=== PATIENT | female | born 1950 | race African-American/Black ===

== ENCOUNTER 2018-01-26 09:05 | Emergency (ER) | payer MEDICARE, BC, OTHER ==
--- NOTE | 2018-01-26 09:43 | ER Document Report ---
ED Medical Screen (RME) - General Chief Complaint: Shoulder Pain Stated Complaint: SHOULDER PAIN Time Seen by Provider: 01/26/18 09:34 Mode of Arrival: Ambulatory Information source: Patient TRAVEL OUTSIDE OF THE [place] IN LAST 30 DAYS: No - HPI Onset: Other - 2 DAYS Onset/Duration: Gradual Context: NO KNOWN INJURY Quality of pain: Achy, Dull Severity: Moderate Associated Symptoms: None Exacerbated by: Movement, Walking Relieved by: Denies Similar symptoms previously: No Recently seen / treated by doctor: No - Related Data Allergies/Adverse Reactions: shellfish derived Allergy (Verified 01/26/18 09:11) Home Medications: entresto, coreg, amiodorone, spirolactone, synthroid, baby aspirin Past Medical History - General Information source: Patient - Social History Chew tobacco use (# tins/day): No Frequency of alcohol use: Rare Drug Abuse: None - Past Medical History Cardiac Medical History: Reports: Hx Congestive Heart Failure Renal/ Medical History: Denies: Hx Peritoneal Dialysis Past Surgical History: Reports: Hx Pacemaker - Immunizations Hx Diphtheria, Pertussis, Tetanus Vaccination: Yes Review of Systems - Review of Systems Constitutional: No symptoms reported EENT: No symptoms reported Cardiovascular: No symptoms reported Respiratory: No symptoms reported Gastrointestinal: No symptoms reported Skin: Other - ABSCESS IN THIGH, DRAINING Physical Exam - Vital signs Vitals: Temp Pulse Resp BP Pulse Ox 98.1 F 64 20 117/82 98 01/26/18 09:24 01/26/18 09:24 01/26/18 09:24 01/26/18 09:24 01/26/18 09:24 Interpretation: Normal. No: Tachycardic, Tachypneic, Febrile - General General appearance: Appears well, Alert In distress: None - HEENT Head: Normocephalic Eyes: Normal Conjunctiva: Normal - Respiratory Respiratory status: No respiratory distress - Cardiovascular Rhythm: Regular - Extremities General upper extremity: Normal inspection, Tender - R. SHOULDER JOINT CAPSULE General lower extremity: Normal inspection - Psychological Associated symptoms: Normal affect, Normal mood Course - Vital Signs Vital signs: Temp Pulse Resp BP Pulse Ox 98.1 F 64 20 117/82 98 01/26/18 09:24 01/26/18 09:24 01/26/18 09:24 01/26/18 09:24 01/26/18 09:24
[2018-01-26 11:14] LABS: ABSOLUTE BASOPHILS # (AUTO) 0.1 10^3/uL (0.0-0.2); ABSOLUTE EOSINOPHILS # (AUTO) 0.2 10^3/uL (0.0-0.6); ABSOLUTE LYMPHOCYTES (AUTO) 1.3 10^3/uL (0.5-4.7); ABSOLUTE MONOCYTES (AUTO) 0.9 10^3/uL (0.1-1.4); ABSOLUTE NEUT (AUTO) 9.7 10^3/uL (1.7-8.2); BASOPHILS % (AUTO) 0.9 % (0-2); EOSINOPHILS % (AUTO) 1.3 % (0-6); HEMATOCRIT 45.3 % (36.0-47.0); HEMOGLOBIN 15.1 g/dL (12.0-15.5); LYMPHOCYTES % (AUTO) 10.7 % (13-45); MEAN CORPUSCULAR HEMOGLOBIN 29.7 pg (27.0-33.4); MEAN CORPUSCULAR HGB CONC 33.3 g/dL (32.0-36.0); MEAN CORPUSCULAR VOLUME 89 fl (80-97); MONOCYTES % (AUTO) 7.5 % (3-13); PLATELET COUNT 181 10^3/uL (150-450); RED BLOOD COUNT 5.09 10^6/uL (3.72-5.28); SEGMENTED NEUTROPHILS % (AUTO) 79.6 % (42-78); TOTAL CELLS COUNTED % (AUTO) 100 %; WHITE BLOOD COUNT 12.2 10^3/uL (4.0-10.5)
--- NOTE | 2018-01-26 11:27 | RADIOLOGY REPORT (SQ) ---
EXAM DESCRIPTION: SHOULDER RIGHT 2 OR MORE VIEWS COMPLETED DATE/TIME: 01/26/2018 10:51 am REASON FOR STUDY: PAIN, NO KNOWN INJURY COMPARISON: None. NUMBER OF VIEWS: Three views. TECHNIQUE: Internal rotation, external rotation, and Y view images acquired of the right shoulder. LIMITATIONS: None. FINDINGS: MINERALIZATION: Osteopenic BONES: No acute fracture or dislocation. No worrisome bone lesions. JOINTS: No glenohumeral joint dislocation. Mild bony spurring along the periphery of the bony glenoi d. Acromioclavicular joint bony spurring. Mild narrowing of the subacromial space. VISUALIZED LUNGS AND RIBS: No pneumothorax. No rib fracture. SOFT TISSUES: No radiopaque foreign body. OTHER: No other significant finding. IMPRESSION: Degenerative changes right shoulder. No acute fracture TECHNICAL DOCUMENTATION: JOB ID: [id number] [employer]- All Rights Reserved Reading location - IP/workstation name: [email or web address]
--- NOTE | 2018-01-26 11:51 | RADIOLOGY REPORT (SQ) ---
EXAM DESCRIPTION: ANKLE RIGHT COMPLETE COMPLETED DATE/TIME: 01/26/2018 10:51 am REASON FOR STUDY: PAIN, NO KNOWN INJURY COMPARISON: None. NUMBER OF VIEWS: Three views. TECHNIQUE: AP, lateral, and oblique radiographic images acquired of the right ankle. LIMITATIONS: None. FINDINGS: MINERALIZATION: Normal. BONES: Tiny avulsion fragments are present off the mid tip of the medial malleolus marked with an arr ow JOINTS: There is a tibiotalar joint effusion. No malalignment at the ankle mortise SOFT TISSUES: Medial soft tissue swelling without radiopaque foreign body. Arterial vascular calcifi cations. OTHER: Small plantar calcaneal spur IMPRESSION: Tiny acute avulsion fragments are present off the distal tip medial malleolus. Overlyin g soft tissue swelling with ankle joint effusion TECHNICAL DOCUMENTATION: JOB ID: [id number] [employer]- All Rights Reserved Reading location - IP/workstation name: [email or web address] [email or web address]
[2018-01-26] MEDS ORDERED: LIDOCAINE 4%/TETRACAINE 0.5%/EPI 0.18% 5 ML TOPICAL SOLN TOP ONE (12:02)
[2018-01-26] MEDS ORDERED: CEPHALEXIN 500 MG CAPSULE PO ONE (12:02)
[2018-01-26] MEDS ORDERED: TRAMADOL HCL 50 MG TABLET PO ONE (12:02)
[2018-01-26 12:43] LABS: ALANINE AMINOTRANSFERASE 61 U/L (9-52); ALBUMIN 4.2 g/dL (3.5-5.0); ALKALINE PHOSPHATASE 293 U/L (38-126); ANION GAP 17 (5-19); ASPARTATE AMINO TRANSFERASE 46 U/L (14-36); BILIRUBIN,DIRECT 0.5 mg/dL (0.0-0.4); BILIRUBIN,TOTAL 0.5 mg/dL (0.2-1.3); BLOOD UREA NITROGEN 34 mg/dL (7-20); CALCIUM 10.5 mg/dL (8.4-10.2); CARBON DIOXIDE 18 mmol/L (22-30); CHLORIDE 107 mmol/L (98-107); GLUCOSE 175 mg/dL (75-110); POTASSIUM 4.4 mmol/L (3.6-5.0); TOTAL PROTEIN 7.5 g/dL (6.3-8.2)
--- NOTE | 2018-01-26 13:02 | ER Document Report ---
ED General - General Chief Complaint: Shoulder Pain Stated Complaint: SHOULDER PAIN Time Seen by Provider: 01/26/18 09:34 Mode of Arrival: Ambulatory TRAVEL OUTSIDE OF THE [place] IN LAST 30 DAYS: No - HPI Patient complains to provider of: Right shoulder pain right ankle pain abscess Notes: Patient coming in for right shoulder pain right ankle pain ongoing for the last 2 days also coming in for concern of masses in the left leg. Patient states draining of the abscess to yellow drainage. Denies any fevers chills nausea vomiting diarrhea. Patient denies any trauma. Patient states pain in the shoulder and ankle been ongoing for 2 days. Denies any excessive physical activity patient otherwise resting comfortably upon my evaluation. - Related Data Allergies/Adverse Reactions: shellfish derived Allergy (Verified 01/26/18 09:11) Home Medications: entresto, coreg, amiodorone, spirolactone, synthroid, baby aspirin Past Medical History - General Information source: Patient - Social History Smoking Status: Never Smoker Chew tobacco use (# tins/day): No Frequency of alcohol use: Rare Drug Abuse: None Family History: Reviewed & Not Pertinent Patient has suicidal ideation: No Patient has homicidal ideation: No - Past Medical History Cardiac Medical History: Reports: Hx Congestive Heart Failure Endocrine Medical History: Reports: Hx Diabetes Mellitus Type 2 Renal/ Medical History: Denies: Hx Peritoneal Dialysis Past Surgical History: Reports: Hx Pacemaker - Immunizations Hx Diphtheria, Pertussis, Tetanus Vaccination: Yes Review of Systems - Review of Systems Constitutional: Other - Shoulder pain ankle pain abscess EENT: No symptoms reported Cardiovascular: No symptoms reported Respiratory: No symptoms reported Gastrointestinal: No symptoms reported Genitourinary: No symptoms reported Female Genitourinary: No symptoms reported Musculoskeletal: No symptoms reported Skin: No symptoms reported Hematologic/Lymphatic: No symptoms reported Neurological/Psychological: No symptoms reported -: Yes All other systems reviewed and negative Physical Exam - Vital signs Vitals: Temp Pulse Resp BP Pulse Ox 98.1 F 64 20 117/82 98 01/26/18 09:24 01/26/18 09:24 01/26/18 09:24 01/26/18 09:24 01/26/18 09:24 Interpretation: Normal - General General appearance: Appears well, Alert - HEENT Head: Normocephalic, Atraumatic Eyes: Normal Pupils: PERRL - Respiratory Respiratory status: No respiratory distress Chest status: Nontender Breath sounds: Normal Chest palpation: Normal - Cardiovascular Rhythm: Regular Heart sounds: Normal auscultation Murmur: No - Abdominal Inspection: Normal Distension: No distension Bowel sounds: Normal Tenderness: Nontender Organomegaly: No organomegaly - Back Back: Normal, Nontender - Extremities General upper extremity: Normal inspection, Tender - Tenderness palpation of the supraspinatus infraspinatus muscles of the shoulder blade no tenderness with range of motion, Normal color, Normal ROM, Normal temperature General lower extremity: Nontender, Normal color, Normal ROM, Normal temperature. No: Normal inspection - Swelling to the medial malleolus.Patient with a abscess with drainage on the inner thigh on the left is approximately 4 cm x 4 cm with good induration and fluctuance., Kathleen's sign - Neurological Neuro grossly intact: Yes Cognition: Normal Orientation: AAOx4 Tomasz Coma Scale Eye Opening: Spontaneous [place] Coma Scale Verbal: Oriented [place] Coma Scale Motor: Obeys Commands Tomasz Coma Scale Total: 15 Speech: Normal Motor strength normal: LUE, RUE, LLE, RLE Sensory: Normal - Psychological Associated symptoms: Normal affect, Normal mood - Skin Skin Temperature: Warm Skin Moisture: Dry Skin Color: Normal Course - Re-evaluation Re-evalutation: 01/26/18 19:11 The x-ray of the right ankle shows a avulsion fracture more likely from a possible inversion injury on the ankle likely from a sprain. Patient was placed in a Caden wrap and also given an ankle stirrup. Patient shoulder does show a diffuse arthritic changes. Patient abscess was opened more with a 18- gauge needle. Patient was encouraged follow-up PCP patient will be discharged home. Patient was started on Keflex for abscess - Vital Signs Vital signs: Temp Pulse Resp BP Pulse Ox 98.3 F 65 18 122/62 97 01/26/18 13:37 01/26/18 13:37 01/26/18 13:37 01/26/18 13:37 01/26/18 13:37 - Laboratory Result Diagrams: 01/26/18 10:58 01/26/18 12:01 Laboratory results interpreted by me: 01/26/18 01/26/18 01/26/18 10:58 10:58 12:01 WBC 12.2 H Seg Neutrophils % 79.6 H Lymphocytes % 10.7 L Absolute Neutrophils 9.7 H ESR 95 H Carbon Dioxide BUN Creatinine Est GFR ( Amer) Est GFR (Non-Af Amer) Glucose Calcium Direct Bilirubin AST ALT Alkaline Phosphatase C-Reactive Protein 51.2 H 01/26/18 12:01 WBC Seg Neutrophils % Lymphocytes % Absolute Neutrophils ESR Carbon Dioxide 18 L BUN 34 H Creatinine 1.64 H Est GFR ( Amer) 38 L Est GFR (Non-Af Amer) 31 L Glucose 175 H Calcium 10.5 H Direct Bilirubin 0.5 H AST 46 H ALT 61 H Alkaline Phosphatase 293 H C-Reactive Protein Discharge - Discharge Clinical Impression: Abscess, Arthritis of right shoulder region Avulsion fracture of right ankle Qualifiers: Encounter type: initial encounter Fracture type: closed Qualified Code(s): S82.891A - Other fracture of right lower leg, initial encounter for closed fracture Condition: Good Disposition: HOME, SELF-CARE Instructions: Abscess ([facility]), Caden Wrap ([facility]), Arthralgia ([facility]), Avulsion Fracture of the Ankle ([facility]), Oral Narcotic Medication ([facility]) Additional Instructions: Your x-ray shows a small avulsion fracture of your right ankle. More likely this occurred with a twisting motion of her ankle. He can still take Tylenol and Motrin for pain control. Please take the Ultram for severe pain. Continue to wear the wrap for the ankle stirrup as needed for support use crutches as needed to as well. The abscess was opened more and will continue to drain. Please take antibiotics as prescribed return to ER symptoms worsen. Prescriptions: Cephalexin Monohydrate [Keflex 500 mg Capsule] 500 mg PO Q6H 7 Days capsule Tramadol HCl [Ultram 50 mg Tablet] 50 mg PO ASDIR PRN #20 tablet PRN Reason: Walker [Ultra-Light Rollator] 1 each MC DAILY #1 each Forms: Return to Work
[2018-01-26 13:41] VITALS: BP 122/62
== END 2018-01-26 13:41 | disposition home or self-care (01) ==
LOC: ER 09:05
PROC: 0H9LXZZ Drainage of Left Lower Leg Skin, External Approach (ICD-10-PCS; principal; 2018-01-26)
DX: S82.891A Other fracture of right lower leg, initial encounter for closed fracture (principal); M19.011 Primary osteoarthritis, right shoulder; L02.416 Cutaneous abscess of left lower limb; M25.511 Pain in right shoulder; M25.571 Pain in right ankle and joints of right foot; X58.XXXA Exposure to other specified factors, initial encounter; E11.9 Type 2 diabetes mellitus without complications
CPT/HCPCS: 99284; 36415; 85025; 85652; 86140; 80053; 73610; 73030; 10060; L1902; A9270 ×2; J3490

== ENCOUNTER 2018-05-02 13:17 | Emergency (ER) | payer MEDICARE, BC, OTHER ==
--- NOTE | 2018-05-02 14:01 | ER Document Report ---
ED Medical Screen (RME) - General Stated Complaint: BREAST PAIN Time Seen by Provider: 05/02/18 13:45 Notes: This is a 67-year-old female patient had a nursing facility complaining of right breast pain. Patient states that she has been recently hospitalized for sepsis. Renal failure. Dialysis. Currently having severe pain and enlargement of the right breast. I have greeted and performed a rapid initial assessment of this patient. A comprehensive ED assessment and evaluation of the patient, analysis of test results and completion of the medical decision making process will be conducted by additional ED providers. TRAVEL OUTSIDE OF THE [place] IN LAST 30 DAYS: No - Related Data Allergies/Adverse Reactions: shellfish derived Allergy (Verified 01/26/18 09:11) Past Medical History - Past Medical History Cardiac Medical History: Reports: Hx Congestive Heart Failure, Hx Hypertension Endocrine Medical History: Reports: Hx Diabetes Mellitus Type 2 Renal/ Medical History: Denies: Hx Peritoneal Dialysis Malignancy Medical History: Reports: Hx Leukemia - 1983. Musculoskeltal Medical History: Reports Hx Arthritis Past Surgical History: Reports: Hx Cardiac Surgery - pacemaker, Hx Hysterectomy , Hx Pacemaker, Other - Vascular access for autologous transplant. Bone Marrow biopsy. - Immunizations Hx Diphtheria, Pertussis, Tetanus Vaccination: Yes History of Influenza Vaccine for 06/2017 - 11/2017 Season: Unknown Doctor's Discharge - Discharge Referrals: TESSA DONNELLY MD [Primary Care Provider] - Follow up as needed
--- NOTE | 2018-05-02 14:24 | ER Document Report ---
ED Breast Problem - General Mode of Arrival: Ambulatory Information source: Patient Notes: Patient is a 67 year old female that presents to the emergency department today with complaints of a right-sided lump in her breast and extensive swelling to the right breast. Patient complains of generalized pain to the right breast with no focal area of tenderness or drainage. Patient has right arm swelling and bilateral leg swelling which she states is chronic. TRAVEL OUTSIDE OF THE [place] IN LAST 30 DAYS: No <BURT KOLB - Last Filed: 05/02/18 16:08> <LEATHA MAYES - Last Filed: 05/02/18 18:46> - General Chief Complaint: Breast Lump Stated Complaint: BREAST PAIN Time Seen by Provider: 05/02/18 13:45 - Related Data Allergies/Adverse Reactions: shellfish derived Allergy (Verified 01/26/18 09:11) Past Medical History - General Information source: Patient - Social History Smoking Status: Never Smoker Cigarette use (# per day): No Frequency of alcohol use: None Drug Abuse: None Lives with: Intermediate Family History: DM, Reviewed & Not Pertinent, Other - Past Medical History Cardiac Medical History: Reports: Hx Congestive Heart Failure, Hx Hypertension Endocrine Medical History: Reports: Hx Diabetes Mellitus Type 2 Malignancy Medical History: Reports: Hx Leukemia - 1983. Musculoskeletal Medical History: Reports Hx Arthritis Past Surgical History: Reports: Hx Cardiac Surgery - pacemaker, Hx Hysterectomy , Hx Pacemaker, Other - Vascular access for autologous transplant. Bone Marrow biopsy. - Immunizations Hx Diphtheria, Pertussis, Tetanus Vaccination: Yes <BURT KOLB - Last Filed: 05/02/18 16:08> Renal/ Medical History: Reports: Other - Renal insufficiency <LEATHA MAYES - Last Filed: 05/02/18 18:46> Review of Systems - Review of Systems Constitutional: No symptoms reported EENT: No symptoms reported Cardiovascular: No symptoms reported Respiratory: No symptoms reported Gastrointestinal: No symptoms reported Genitourinary: No symptoms reported Female Genitourinary: No symptoms reported Musculoskeletal: See HPI, Leg swelling Skin: See HPI, Lumps - Right breast lump/swelling Hematologic/Lymphatic: No symptoms reported Neurological/Psychological: No symptoms reported -: Yes All other systems reviewed and negative <BURT KOLB - Last Filed: 05/02/18 16:08> Physical Exam - Notes Notes: Physical Exam: General: Alert. HEENT: Normocephalic. Atraumatic. PERRL. Extraocular movements intact. Oropharynx clear. Neck: Supple. Non-tender. Respiratory: No respiratory distress. Clear and equal breath sounds bilaterally. Cardiovascular: Regular rate and rhythm. Abdominal: Normal Inspection. Non-tender. No distension. Normal Bowel Sounds. Back: Non-tender. No deformity or step off. Extremities: Moves all four extremities. Upper extremities: Normal inspection. Normal ROM. Lower extremities: 2-3+ brawny pitting edema bilaterally Neurological: Normal cognition. AAOx4. Normal speech. Psychological: Normal affect. Normal Mood. Skin: Right breast is massively edematous. Left nipple is inverted while the right nipple is much larger and protruding. Right breast is tender diffusely, no focal area of exquisite tenderness or drainage. There are no distended veins in the right breast. No warmth or erythema. <BURT KOLB - Last Filed: 05/02/18 16:08> Course - Re-evaluation Re-evalutation: 05/02/18 18:39 Family member arrived and further history shows that the patient is always laying on her right side. The surgeon attempted to start a central line, but found there was clot in both IJ's, and probably right subclavian. There is a pacemaker on the left. There is severe intertrigo in the groin and underneath each breast. Discussion was had with the surgeon and family member. It appears that the breast edema is all dependent edema due to laying on her right side all the time. The right upper extremity edema is probably mostly due to dependent edema also. She does have significant dependent edema in the lower extremities. Risks and benefits of anticoagulation were discussed with the family member and the patient. At this point it appears the most prudent approach would be to have the assisted staff make her lay on her left side most of the time rather than allow her to lay on her right side. She did have a dialysis catheter by history, but it was never used and was removed before she was transferred to [place] in March of this year. In [place] she received fluids, diuretics, never had dialysis. 05/02/18 18:43 - Laboratory Result Diagrams: 05/02/18 16:30 05/02/18 16:30 <LEATHA MAYES - Last Filed: 05/02/18 18:46> Scribe Documentation - Scribe Written by Inoe:: Divya Godoy, 05/02/2018 1650 acting as scribe for :: Charlee <BURT KOLB - Last Filed: 05/02/18 16:08> Discharge <BURT KOLB - Last Filed: 05/02/18 16:08> - Discharge Scribe Attestation: 05/02/18 15:55 I personally performed the services described in the documentation, reviewed and edited the documentation which was dictated to the scribe in my presence, and it accurately records my words and actions. <LEATHA MAYES - Last Filed: 05/02/18 18:46> - Discharge Clinical Impression: Edema of breast, Arm edema, Renal insufficiency, Intertrigo Condition: Stable Disposition: HOME, SELF-CARE Additional Instructions: Your arm and breast edema appear to be related to laying on your right side most of the time. You will need to be turned onto your left side most of the time for the next several days to help decrease the swelling on the right side. Follow-up with Dr. Rico this week to discuss the possibility of additional diuretic use. RETURN TO THE EMERGENCY ROOM IF ANY NEW OR WORSENING SYMPTOMS. Referrals: TESSA DONNELLY MD [Primary Care Provider] - Follow up as needed
--- NOTE | 2018-05-02 16:11 | XCELERA REPORT ---
[address] [address] Upper Extremity Venous Evaluation Name: SIMEON ROSA Age: 67 yrs Gender: Female : 1950 Patient Status: Preadmit Patient Location: ER Study Date: 05/02/2018 03:01 PM Procedure: Unilateral duplex scan of the right upper extremity veins was performed, including responses to compression and other maneuvers. Reason For Study: RUE and breast edema Ordering Physician: LEATHA MAYES Performed By: Desmond Oakley Right Side Venous Evaluation Abnormal vessel filling, echogenic, localized, in the otherwise normal looking Internal Jugular vein. Otherwise veins look normal down to the forearm veins. 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 : LEATHA MAYES > Wander Rosa
[2018-05-02 17:18] LABS: ABSOLUTE BASOPHILS # (AUTO) 0.1 10^3/uL (0.0-0.2); ABSOLUTE EOSINOPHILS # (AUTO) 0.1 10^3/uL (0.0-0.6); ABSOLUTE LYMPHOCYTES (AUTO) 0.5 10^3/uL (0.5-4.7); ABSOLUTE MONOCYTES (AUTO) 0.5 10^3/uL (0.1-1.4); ABSOLUTE NEUT (AUTO) 6.6 10^3/uL (1.7-8.2); BASOPHILS % (AUTO) 0.8 % (0-2); EOSINOPHILS % (AUTO) 1.6 % (0-6); HEMATOCRIT 34.1 % (36.0-47.0); HEMOGLOBIN 10.9 g/dL (12.0-15.5); LYMPHOCYTES % (AUTO) 6.2 % (13-45); MEAN CORPUSCULAR HEMOGLOBIN 28.7 pg (27.0-33.4); MEAN CORPUSCULAR HGB CONC 32.1 g/dL (32.0-36.0); MEAN CORPUSCULAR VOLUME 89 fl (80-97); MONOCYTES % (AUTO) 6.7 % (3-13); PLATELET COUNT 154 10^3/uL (150-450); RED BLOOD COUNT 3.82 10^6/uL (3.72-5.28); RED CELL DISTRIBUTION WIDTH 22.2 % (11.5-14.0); SEGMENTED NEUTROPHILS % (AUTO) 84.7 % (42-78); TOTAL CELLS COUNTED % (AUTO) 100 %; WHITE BLOOD COUNT 7.8 10^3/uL (4.0-10.5)
[2018-05-02 17:31] LABS: INTERNATIONAL RATION (INR) 1.23; PARTIAL THROMBOPLASTIN TIME 27.1 SEC (23.5-35.8); PROTHROMBIN TIME 16.2 SEC (11.4-15.4)
[2018-05-02 17:34] LABS: D-DIMER 3.25 ug/mL (0.00-0.50)
[2018-05-02 17:37] LABS: ALANINE AMINOTRANSFERASE 25 U/L (9-52); ALBUMIN 2.6 g/dL (3.5-5.0); ALKALINE PHOSPHATASE 191 U/L (38-126); ANION GAP 13 (5-19); ASPARTATE AMINO TRANSFERASE 12 U/L (14-36); BILIRUBIN,DIRECT 0.5 mg/dL (0.0-0.4); BILIRUBIN,TOTAL 0.7 mg/dL (0.2-1.3); BLOOD UREA NITROGEN 49 mg/dL (7-20); CALCIUM 8.7 mg/dL (8.4-10.2); CARBON DIOXIDE 21 mmol/L (22-30); CHLORIDE 110 mmol/L (98-107); CREATINE KINASE 33 U/L (30-135); GLUCOSE 68 mg/dL (75-110); POTASSIUM 3.8 mmol/L (3.6-5.0); SODIUM 144.1 mmol/L (137-145); TOTAL PROTEIN 5.8 g/dL (6.3-8.2)
[2018-05-02 18:01] LABS: TROPONIN I 0.025 ng/mL
--- NOTE | 2018-05-02 18:31 | Progress Note ---
Provider Note Provider Note: Called to see patient for possible central line placement. 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 The right subclavian vein was unrecognizable on ultrasound. I suspect severe stenosis and/or thrombosis. The left subclavian vein has an indwelling pacemaker or AICD. Bilateral groins were inspected. There is severe candidiasis in this area. At this time the patient is not a candidate for central line placement. This is been discussed with the patient's and her family.
[2018-05-02 19:56] VITALS: BP 95/65
== END 2018-05-02 20:00 | disposition home or self-care (01) ==
LOC: ER 13:17
DX: N64.4 Mastodynia (principal); N28.9 Disorder of kidney and ureter, unspecified; L30.4 Erythema intertrigo; R60.9 Edema, unspecified; I50.9 Heart failure, unspecified; I11.0 Hypertensive heart disease with heart failure; E11.9 Type 2 diabetes mellitus without complications; Z91.013 Allergy to seafood; Z95.0 Presence of cardiac pacemaker; Z90.710 Acquired absence of both cervix and uterus
CPT/HCPCS: 36415; 80053; 82550; 83605; 83880; 84484; 85025; 85379; 85610; 85730; 87040; 93971; 99284

== ENCOUNTER 2018-05-16 11:53 | Inpatient (IN) | payer MEDICARE, BC, OTHER ==
--- NOTE | 2018-05-16 13:30 | ER Document Report ---
ED General - General Chief Complaint: Swelling of Lower Extremity Stated Complaint: TOE PAIN Time Seen by Provider: 05/16/18 13:05 TRAVEL OUTSIDE OF THE [place] IN LAST 30 DAYS: No - HPI Patient complains to provider of: shortness of breath Onset: Other - This 67-year-old female presented for evaluation of shortness of breath as well as worsening swelling in the lower extremities from her plant director's office. Dr. Rico her plant director referred her here as he has been attempting to diurese her aggressively to better manage her fluid status using metolazone as well as Lasix. She previously required temporary dialysis and incense him improved enough to come off of dialysis. She notes that she is having difficulty moving now is unable to get out of bed, as worsening shortness of breath and orthopnea. Denies any chest pain denies any abdominal pain constipation diarrhea she is incontinent of urine. She has been taking her medications as usual nothing seemed to make her symptoms any better, nothing seems to make it any worse. - Related Data Allergies/Adverse Reactions: shellfish derived Allergy (Verified 05/16/18 12:25) Past Medical History - General Information source: Patient, Relative - Social History Smoking Status: Unknown if Ever Smoked Family History: DM, Reviewed & Not Pertinent, Other Patient has suicidal ideation: No Patient has homicidal ideation: No - Past Medical History Cardiac Medical History: Reports: Hx Congestive Heart Failure, Hx Hypertension Endocrine Medical History: Reports: Hx Diabetes Mellitus Type 2 Renal/ Medical History: Denies: Hx Peritoneal Dialysis Malignancy Medical History: Reports: Hx Leukemia - 1983. Musculoskeletal Medical History: Reports Hx Arthritis Past Surgical History: Reports: Hx Cardiac Surgery - pacemaker, Hx Hysterectomy , Hx Pacemaker, Other - Vascular access for autologous transplant. Bone Marrow biopsy. - Immunizations Hx Diphtheria, Pertussis, Tetanus Vaccination: Yes Review of Systems - Review of Systems -: Yes All other systems reviewed and negative Physical Exam - Vital signs Vitals: Resp BP Pulse Ox 23 H 79/48 L 95 05/16/18 12:06 05/16/18 12:06 05/16/18 12:06 - General General appearance: Other - Chronically ill-appearing woman In distress: None - HEENT Head: Normocephalic Eyes: Normal Conjunctiva: Normal Cornea: Normal - Respiratory Respiratory status: No respiratory distress Chest status: Nontender Breath sounds: Other - crackles in the inferior bases Chest palpation: Normal - Cardiovascular Rhythm: Regular Heart sounds: S2 appreciated Murmur: No - Abdominal Inspection: Morbidly Obese Distension: Distended Tenderness: Nontender - Back Back: Normal - Extremities General upper extremity: Normal inspection General lower extremity: Normal inspection - Neurological Neuro grossly intact: Yes Cognition: Normal Orientation: AAOx4 - Psychological Associated symptoms: Normal affect Course - Re-evaluation Re-evalutation: 05/16/18 18:22 67 yo female presenting for worsening fluid status from her plant director office. He desires her to be diuresed aggressively, this patient has relatively low blood pressures on presentation in the 80 systolic range. Her fluid status is tenuous, she has a poor ejection fraction between 15 and 20% . We will plan for brief period of monitoring obtaining BNP troponin EKG as well as other markers electrolytes. We will plan for administration of a diuretic which may improve her blood pressure. Bedside ultrasound demonstrates intact ejection fraction of approximately 20%, there are B-lines appreciable in the chest. We will continue to monitor and emergency department reassess as necessary. Spoke to patient's plant director Dr. Rico on the phone, he believes that she would benefit from inpatient monitoring will follow her for a consult tomorrow and dialyze as necessary. Have spoken with the patient's sister at the bedside who is in agreement with current plan, Dr. Ladan Clark agrees to admission at this time with continued monitoring and evaluation. - Vital Signs Vital signs: Temp Pulse Resp BP Pulse Ox 98.5 F 26 H 101/70 100 05/16/18 17:36 05/16/18 17:31 05/16/18 17:31 05/16/18 17:31 - Laboratory Result Diagrams: 05/16/18 12:20 05/16/18 12:20 Laboratory results interpreted by me: 05/16/18 05/16/18 05/16/18 12:20 12:20 14:34 RDW 20.3 H Plt Count 145 L Seg Neuts % (Manual) 92 H Lymphocytes % (Manual) 5 L Monocytes % (Manual) 2 L Abs Neuts (Manual) 8.6 H BUN 46 H Creatinine 1.99 H Est GFR ( Amer) 30 L Est GFR (Non-Af Amer) 25 L Direct Bilirubin 0.9 H Alkaline Phosphatase 265 H NT-Pro-B Natriuret Pep Total Protein 6.1 L Albumin 2.3 L Urine Blood SMALL H 05/16/18 15:35 RDW Plt Count Seg Neuts % (Manual) Lymphocytes % (Manual) Monocytes % (Manual) Abs Neuts (Manual) BUN Creatinine Est GFR ( Amer) Est GFR (Non-Af Amer) Direct Bilirubin Alkaline Phosphatase NT-Pro-B Natriuret Pep 27879 H Total Protein Albumin Urine Blood Procedures - Ultrasound/Bedside Ultrasound/Bedside Ultrasound: Other - decreased EF ~20%, no obvious effusion or septal bowing Critical Care Note - Critical Care Note Total time excluding time spent on procedures (mins): 15 Discharge - Discharge Clinical Impression: Acute on chronic systolic (congestive) heart failure, Morbid obesity, CKD ( chronic kidney disease) stage 3, GFR 30-59 ml/min CAD (coronary artery disease) Qualifiers: Coronary Disease-Associated Artery/Lesion type: unspecified vessel or lesion type Associated angina: with unspecified angina Acute on chronic renal failure Qualifiers: Acute renal failure type: unspecified Chronic kidney disease stage: stage 3 ( moderate) Qualified Code(s): N17.9 - Acute kidney failure, unspecified Condition: Fair Disposition: ADMITTED INPATIENT Admitting Provider: Hospitalist Unit Admitted: Telemetry
[2018-05-16 14:09] LABS: ALANINE AMINOTRANSFERASE 26 U/L (9-52); ALBUMIN 2.3 g/dL (3.5-5.0); ALKALINE PHOSPHATASE 265 U/L (38-126); ANION GAP 8 (5-19); ASPARTATE AMINO TRANSFERASE 28 U/L (14-36); BILIRUBIN,DIRECT 0.9 mg/dL (0.0-0.4); BILIRUBIN,TOTAL 0.9 mg/dL (0.2-1.3); BLOOD UREA NITROGEN 46 mg/dL (7-20); CALCIUM 8.4 mg/dL (8.4-10.2); CARBON DIOXIDE 28 mmol/L (22-30); CHLORIDE 104 mmol/L (98-107); GLUCOSE 96 mg/dL (75-110); LIPASE 265.4 U/L (23-300); POTASSIUM 3.7 mmol/L (3.6-5.0); SODIUM 139.8 mmol/L (137-145); TOTAL PROTEIN 6.1 g/dL (6.3-8.2)
[2018-05-16 14:11] LABS: HEMATOCRIT 37.9 % (36.0-47.0); HEMOGLOBIN 12.2 g/dL (12.0-15.5); MEAN CORPUSCULAR HEMOGLOBIN 28.3 pg (27.0-33.4); MEAN CORPUSCULAR HGB CONC 32.2 g/dL (32.0-36.0); MEAN CORPUSCULAR VOLUME 88 fl (80-97); PLATELET COUNT 145 10^3/uL (150-450); RED BLOOD COUNT 4.31 10^6/uL (3.72-5.28); RED CELL DISTRIBUTION WIDTH 20.3 % (11.5-14.0); WHITE BLOOD COUNT 9.4 10^3/uL (4.0-10.5)
[2018-05-16 14:45] LABS: ABSOLUTE LYMPHOCYTES# (MANUAL) 0.5 10^3/uL (0.5-4.7); ABSOLUTE MONOCYTES # (MANUAL) 0.2 10^3/uL (0.1-1.4); ABSOLUTE NEUTROPHILS# (MANUAL) 8.6 10^3/uL (1.7-8.2); BASOPHILS % (MANUAL) 0 % (0-2); EOSINOPHILS % (MANUAL) 1 % (0-6); LYMPHOCYTES % (MANUAL) 5 % (13-45); MONOCYTES % (MANUAL) 2 % (3-13); SEGMENTED NEUTROPHILS % (MAN) 92 % (42-78); TOTAL CELLS COUNTED 100
[2018-05-16 14:46] LABS: ANISOCYTOSIS 2+; BURR CELLS 1+; OVALOCYTES 1+; PLATELET COMMENT DECREASED; POIKILOCYTOSIS 2+; SCHISTOCYTES 1+; TARGET CELLS 1+; TOXIC VACUOLATION PRESENT
--- NOTE | 2018-05-16 14:46 | RADIOLOGY REPORT (SQ) ---
EXAM DESCRIPTION: CHEST SINGLE VIEW COMPLETED DATE/TIME: 05/16/2018 2:27 pm REASON FOR STUDY: fatigue COMPARISON: 02/22/2016 EXAM PARAMETERS: NUMBER OF VIEWS: One view. TECHNIQUE: Single frontal radiographic view of the chest acquired. RADIATION DOSE: NA LIMITATIONS: None. FINDINGS: LUNGS AND PLEURA: Low lung volumes limits the examination. Elevation of the right hemidi aphragm, unchanged finding. Linear subsegmental atelectasis in the right mid lung. The cardiac pace maker device overlies the left lower lobe limiting detail. MEDIASTINUM AND HILAR STRUCTURES: No masses. Contour normal. HEART AND VASCULAR STRUCTURES: Heart normal in size. Normal vasculature. BONES: No acute findings. HARDWARE: Cardiac pacemaker/defibrillator. OTHER: No other significant finding. IMPRESSION: 1 Low lung volumes limits detailed. As can best be determined, no acute findings. TECHNICAL DOCUMENTATION: JOB ID: [id number] [employer]- All Rights Reserved Reading location - IP/workstation name: [email or web address]
[2018-05-16] MEDS ORDERED: FUROSEMIDE INJ/PF 40 MG/4 ML SDV IV ONE ×2 (16:02→17:00)
[2018-05-16 16:16] LABS: APPEARANCE,URINE CLEAR; BILIRUBIN,URINE NEGATIVE (NEGATIVE); COLOR,URINE YELLOW; GLUCOSE, URINE NEGATIVE (NEGATIVE); KETONES,URINE NEGATIVE (NEGATIVE); LEUKOCYTE ESTERASE,URINE NEGATIVE (NEGATIVE); NITRITE,URINE NEGATIVE (NEGATIVE); PROTEIN,URINE NEGATIVE (NEGATIVE); URINE SPECIFIC GRAVITY 1.011; UROBILINOGEN,URINE NEGATIVE mg/dL (<2.0)
[2018-05-16 16:24] LABS: TROPONIN I 0.018 ng/mL
[2018-05-16] MEDS ORDERED: IPRATROPIUM/ALBUTEROL 0.5-2.5 MG/3 ML AMPUL NEB PRN (16:40)
[2018-05-16] MEDS ORDERED: ONDANSETRON HCL INJ/PF 4 MG/2 ML SDV IV PRN (16:40)
--- NOTE | 2018-05-16 16:40 | PDOC H&P ---
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 Patient referred from her primary rap artist Dr. Rico's office for possible IV Lasix since she failed to respond to p.o. diuretics. Patient denies fever, chills, chest pain, palpitation or diaphoresis. She denied any nausea, vomiting abdominal pain or diarrhea. Her initial blood work shows GFR of 20, creatinine of 1.99 she also isolated elevation of alkaline phosphatase of 265. Chest x-ray reported normal but quality of the chest x-ray is poor. Past Medical History Cardiac Medical History: Reports: Congestive Heart Failure, Hypertension Endocrine Medical History: Reports: Diabetes Mellitus Type 2 Malignancy Medical History: Reports: Leukemia - 1983. Musculoskeltal Medical History: Reports: Arthritis Hematology: Reports: Anemia Past Surgical History Past Surgical History: Reports: Hysterectomy, Pacemaker, Other - Vascular access for autologous transplant. Bone Marrow biopsy. Social History Smoking Status: Never Smoker Frequency of Alcohol Use: None Hx Recreational Drug Use: No Drugs: Marijuana Hx Prescription Drug Abuse: No - Advance Directive Resuscitation Status: Full Code Family History Family History: Reviewed & Not Pertinent, DM, Other Parental Family History Reviewed: Yes Children Family History Reviewed: Yes Sibling(s) Family History Reviewed.: Yes Medication/Allergy Home Medications: Cephalexin Monohydrate [Keflex 500 mg Capsule] 500 mg PO Q6H 7 Days capsule 11/14 Tramadol HCl [Ultram 50 mg Tablet] 50 mg PO ASDIR PRN #20 tablet 01/26/18 Walker [Ultra-Light Rollator] 1 each MC DAILY #1 each 01/26/18 Amiodarone HCl [Cordarone 200 mg Tablet] 200 mg PO DAILY 04/06/18 Calcitriol [Rocaltrol 0.25 Mcg Capsule] 0.25 mcg PO DAILY 04/06/18 Carvedilol [Coreg 3.125 mg Tablet] 3.125 mg PO Q12 04/06/18 Docusate Sodium [Colace 100 mg Capsule] 100 mg PO BID 04/06/18 Febuxostat [Uloric 40 mg Tablet] 40 mg PO DAILY 04/06/18 Furosemide [Lasix 20 mg Tablet] 20 mg PO QAM 04/06/18 Levothyroxine Sodium [Synthroid 0.15 mg Tablet] 0.15 mg PO Q6AM 04/06/18 Prednisone [Deltasone 10 mg Tablet] 10 mg PO DAILY 04/06/18 Ranitidine HCl [Zantac 150 mg Tablet] 150 mg PO BID 04/06/18 Sennosides/Docusate Sodium [Senna-S Tablet] 2 each PO DAILY 04/06/18 Sevelamer HCl [Renagel] 1,600 mg PO MEALS 04/06/18 Tramadol HCl [Ultram 50 mg Tablet] 50 mg PO Q6 04/06/18 Allergies/Adverse Reactions: shellfish derived Allergy (Verified 05/16/18 12:25) Review of Systems Constitutional: PRESENT: as per HPI Nose, Mouth, and Throat: PRESENT: as per HPI Cardiovascular: PRESENT: as per HPI Gastrointestinal: PRESENT: as per HPI Neurological: PRESENT: as per HPI Physical Exam Vital Signs: Temp Pulse Resp BP Pulse Ox 97.8 F 26 H 99/72 L 98 05/16/18 12:23 05/16/18 16:06 05/16/18 16:06 05/16/18 16:06 Intake & Output 05/15/18 05/16/18 05/17/18 06:59 06:59 06:59 Weight 100.698 kg General appearance: PRESENT: mild distress Eye exam: PRESENT: conjunctiva pink Mouth exam: PRESENT: moist Neck exam: ABSENT: carotid bruit, JVD, lymphadenopathy, thyromegaly Cardiovascular exam: PRESENT: systolic murmur - Pansystolic grade 3/6 GI/Abdominal exam: PRESENT: other - Obese Extremities exam: PRESENT: +2 edema Neurological exam: PRESENT: alert, awake, oriented to time, oriented to situation Psychiatric exam: PRESENT: normal mood Results Laboratory Results: 05/16/18 12:20 05/16/18 12:20 05/16/18 05/16/18 05/16/18 12:20 12:20 12:20 WBC 9.4 RBC 4.31 Hgb 12.2 Hct 37.9 MCV 88 MCH 28.3 MCHC 32.2 RDW 20.3 H Plt Count 145 L Seg Neutrophils % Not Reportable Lymphocytes % Not Reportable Monocytes % Not Reportable Eosinophils % Not Reportable Basophils % Not Reportable Absolute Neutrophils Not Reportable Absolute Lymphocytes Not Reportable Absolute Monocytes Not Reportable Absolute Eosinophils Not Reportable Absolute Basophils Not Reportable Sodium 139.8 Potassium 3.7 Chloride 104 Carbon Dioxide 28 Anion Gap 8 BUN 46 H Creatinine 1.99 H Est GFR ( Amer) 30 L Est GFR (Non-Af Amer) 25 L Glucose 96 Lactic Acid 1.8 Calcium 8.4 Total Bilirubin 0.9 AST 28 ALT 26 Alkaline Phosphatase 265 H Total Protein 6.1 L Albumin 2.3 L Lipase 265.4 Urine Color Urine Appearance Urine pH Ur Specific [place] Urine Protein Urine Glucose (UA) Urine Ketones Urine Blood Urine Nitrite Ur Leukocyte Esterase Urine WBC (Auto) Urine RBC (Auto) 05/16/18 14:34 WBC RBC Hgb Hct MCV MCH MCHC RDW Plt Count Seg Neutrophils % Lymphocytes % Monocytes % Eosinophils % Basophils % Absolute Neutrophils Absolute Lymphocytes Absolute Monocytes Absolute Eosinophils Absolute Basophils Sodium Potassium Chloride Carbon Dioxide Anion Gap BUN Creatinine Est GFR ( Amer) Est GFR (Non-Af Amer) Glucose Lactic Acid Calcium Total Bilirubin AST ALT Alkaline Phosphatase Total Protein Albumin Lipase Urine Color YELLOW Urine Appearance CLEAR Urine pH 6.0 Ur Specific [place] 1.011 Urine Protein NEGATIVE Urine Glucose (UA) NEGATIVE Urine Ketones NEGATIVE Urine Blood SMALL H Urine Nitrite NEGATIVE Ur Leukocyte Esterase NEGATIVE Urine WBC (Auto) 1 Urine RBC (Auto) 0 05/16/18 12:20 Troponin I Cancelled NT-Pro-B Natriuret Pep Cancelled Impressions: Chest X-Ray 05/16/18 13:36 IMPRESSION: 1 Low lung volumes limits detailed. As can best be determined, no acute findings. Assessment & Plan - Diagnosis (1) Acute on chronic systolic (congestive) heart failure Is this a current diagnosis for this admission?: Yes Plan: We will start her on IV Lasix 40 mg IV every 12 hours (2) Type 2 diabetes mellitus Is this a current diagnosis for this admission?: Yes Plan: Sliding-scale, continue home medication (3) Chronic kidney disease, stage IV (severe) Is this a current diagnosis for this admission?: Yes Plan: Dr. Rico consulted (4) Hypertension Qualifiers: Hypertension type: essential hypertension Qualified Code(s): I10 - Essential (primary) hypertension Is this a current diagnosis for this admission?: Yes Plan: Now patient is hypotensive. Hold home antihypertensive agents. (5) Morbid obesity Is this a current diagnosis for this admission?: Yes Plan: Lifestyle modification advised.
[2018-05-16] MEDS ORDERED: INSULIN LISPRO 100 UNIT/ML 3 ML VIAL SUBCUT PRN (22:32)
[2018-05-16] MEDS ORDERED: DEXTROSE 40% GEL 15 GM TUBE PO PRN (22:32)
[2018-05-16] MEDS ORDERED: DEXTROSE 50%-WATER SYRINGE 25 GM/50 ML DOSE IV PRN (22:32)
[2018-05-16] MEDS ORDERED: GLUCAGON,HUMAN RECOMB 1 MG INJ IM PRN (22:32)
[2018-05-16] MEDS ORDERED: DEXTROSE 40% GEL 15 GM TUBE X 2 PO PRN (22:32)
[2018-05-16] MEDS: FUROSEMIDE INJ/PF 40 MG/4 ML SDV IV SCH (23:09)
[2018-05-16] MEDS: HEPARIN SOD (PORCINE) 5,000 UNIT/ML 1 ML SYRINGE SUBCUT SCH (23:09)
[2018-05-17] MEDS: HEPARIN SOD (PORCINE) 5,000 UNIT/ML 1 ML SYRINGE SUBCUT SCH ×3 (05:38→23:18)
[2018-05-17 05:58] LABS: ANION GAP 10 (5-19); BLOOD UREA NITROGEN 46 mg/dL (7-20); CALCIUM 8.1 mg/dL (8.4-10.2); CARBON DIOXIDE 25 mmol/L (22-30); CHLORIDE 104 mmol/L (98-107); GLUCOSE 67 mg/dL (75-110); PHOSPHORUS 2.3 mg/dL (2.5-4.5); POTASSIUM 3.1 mmol/L (3.6-5.0); SODIUM 139.4 mmol/L (137-145)
[2018-05-17] MEDS: FUROSEMIDE INJ/PF 40 MG/4 ML SDV IV SCH ×3 (10:06→23:23)
[2018-05-17] MEDS ORDERED: PREDNISONE 10 MG TABLET PO SCH (12:00)
--- NOTE | 2018-05-17 12:00 | PDOC CONSULTATION ---
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 Besides that she is having progressive the likely disturbances.She apparently had a recent UTI and was treated with tetracyclines at the [facility]. Recently she also was referred to the household assistant for apparent headaches and shoulder aches and I believe she has been diagnosed with polymyalgia rheumatica because she was put on prednisone. I do not have any notes pertaining to that of the moment.Patient is a poor historian. Patient denies any history of chest pains, fever or chills. No history of an abdominal pains. Labs and medications were reviewed with the patient. Past Medical History Cardiac Medical History: Reports: Atrial Fibrillation, CHF-Systolic, Hypertension-primary Endocrine Medical History: Reports: Diabetes Mellitus Type 2, Hypothyroidism Complications of Diabetes: Reports: Nephropathy Renal/ Medical History: Reports: Chronic Kidney Disease Stage III Malignancy Medical History: Reports: Leukemia - 1983. Musculoskeltal Medical History: Reports: Arthritis Past Surgical History Past Surgical History: Reports: Hysterectomy, Pacemaker, Other - Vascular access for autologous transplant. Bone Marrow biopsy. Social History Smoking Status: Never Smoker Frequency of Alcohol Use: None Hx Recreational Drug Use: No Drugs: Marijuana Hx Prescription Drug Abuse: No - Advance Directive Resuscitation Status: Full Code Family History Parental Family History Reviewed: Yes - Negative for ESRD. Children Family History Reviewed: Yes Sibling(s) Family History Reviewed.: Yes - Brother with CKD of unknown etiology. Medication/Allergy Home Medications: Acetaminophen [Tylenol 325 mg Tablet] 650 mg PO Q4HP PRN 05/16/18 Amiodarone HCl [Cordarone 200 mg Tablet] 200 mg PO DAILY 05/16/18 Bisacodyl [Dulcolax 10 mg Supp.rect] 10 mg LA DAILYP PRN 05/16/18 Calcitriol [Rocaltrol 0.25 mcg Capsule] 0.5 mcg PO DAILY 05/16/18 Carvedilol [Coreg 3.125 mg Tablet] 3.125 mg PO Q12 05/16/18 Citalopram Hydrobromide [Celexa 20 mg Tablet] 20 mg PO QHS 05/16/18 Docusate Sodium [Colace 100 mg Capsule] 100 mg PO BID 05/16/18 Furosemide [Lasix 40 mg Tablet] 40 mg PO DAILY 05/16/18 Levothyroxine Sodium [Synthroid] 175 mcg PO Q6AM 05/16/18 Magnesium Oxide [Mag-Ox 400 mg Tablet] 400 mg PO BID 05/16/18 Metolazone [Zaroxolyn 2.5 mg Tablet] 2.5 mg PO DAILY 05/16/18 Potassium Chloride [Klor-Con M20] 20 meq PO BID 05/16/18 Prednisone [Deltasone 5 mg Tablet] 5 mg PO BID 05/16/18 Ranitidine HCl [Zantac 150 mg Tablet] 150 mg PO BID 05/16/18 Sennosides/Docusate Sodium [Senna-S Tablet] 2 tab PO BID 05/16/18 Sodium Bicarbonate [Sodium Bicarbonate 650 mg Tablet] 650 mg PO TID 05/16/18 Allergies/Adverse Reactions: shellfish derived Allergy (Verified 05/16/18 12:25) Review of Systems Constitutional: PRESENT: fatigue, weakness. ABSENT: fever(s), headache(s), night sweats Nose, Mouth, and Throat: ABSENT: mouth pain, sore throat Cardiovascular: PRESENT: dyspnea on exertion, edema, orthropnea. ABSENT: chest pain Respiratory: PRESENT: dyspnea. ABSENT: cough, hemoptysis Gastrointestinal: ABSENT: abdominal pain, diarrhea, dysphagia, heartburn, hematemesis, hematochezia, nausea, vomiting Genitourinary: ABSENT: dysuria, hematuria Integumentary: ABSENT: erythema, lesions, pruritus, rash Neurological: PRESENT: frequent falls, memory loss. ABSENT: abnormal movements Hematologic/Lymphatic: ABSENT: easy bruising, lymphadenopathy Physical Exam Vital Signs: Temp Pulse Resp BP Pulse Ox 99.1 F 90 16 100/62 96 05/17/18 08:47 05/17/18 10:03 05/17/18 10:03 05/17/18 08:47 05/17/18 10:03 General appearance: PRESENT: no acute distress, obese Eye exam: PRESENT: conjunctiva pink, EOMI, PERRLA. ABSENT: nystagmus Ear exam: PRESENT: normal external ear exam Mouth exam: PRESENT: moist, neck supple Neck exam: ABSENT: lymphadenopathy, meningismus, tenderness, thyromegaly, tracheal deviation Respiratory exam: PRESENT: clear to auscultation juancarlos, crackles - Few scattered.. ABSENT: rhonchi Cardiovascular exam: PRESENT: +S1, +S2 GI/Abdominal exam: PRESENT: normal bowel sounds, soft. ABSENT: organomegaly, tenderness Extremities exam: PRESENT: +2 edema - 2-3+. ABSENT: joint swelling Neurological exam: PRESENT: altered, awake, oriented to person. ABSENT: oriented to place, oriented to time Skin exam: ABSENT: erythema, mottled, rash Results Laboratory Results: 05/17/18 04:45 05/17/18 04:45 Sodium 139.4 Potassium 3.1 L Chloride 104 Carbon Dioxide 25 Anion Gap 10 BUN 46 H Creatinine 1.85 H Est GFR ( Amer) 33 L Est GFR (Non-Af Amer) 27 L Glucose 67 L Calcium 8.1 L Phosphorus 2.3 L Magnesium 1.7 Impressions: Chest X-Ray 05/16/18 13:36 IMPRESSION: 1 Low lung volumes limits detailed. As can best be determined, no acute findings. Assessment & Plan - Diagnosis (1) Acute on chronic systolic (congestive) heart failure Is this a current diagnosis for this admission?: Yes Plan: Has failed p.o. diuretics. Increase IV diuretics and add metolazone. Monitor closely. (2) Hypokalemia Plan: Start replacements. (3) Acute on chronic renal failure Qualifiers: Acute renal failure type: unspecified Chronic kidney disease stage: stage 3 (moderate) Qualified Code(s): N17.9 - Acute kidney failure, unspecified; N18.3 - Chronic kidney disease, stage 3 (moderate); N18.3 - Chronic kidney disease, stage 3 (moderate); N18.3 - Chronic kidney disease, stage 3 (moderate) Plan: Nonoliguric. Patient has a Ny catheter. See response to above medications. (4) CKD (chronic kidney disease) stage 3, GFR 30-59 ml/min Plan: Base creatinine is around 1.5. (5) Hypertension Qualifiers: Hypertension type: essential hypertension Qualified Code(s): I10 - Essential (primary) hypertension Is this a current diagnosis for this admission?: Yes Plan: Currently hypotensive. Agree with holding of antihypertensives.Currently she is off the prednisone which I believe she was put on by rheumatology for possible polymyalgia rheumatica. Would benefit from reinstitution. (6) Morbid obesity Is this a current diagnosis for this admission?: Yes Plan: Needs to lose weight. (7) Type 2 diabetes mellitus Is this a current diagnosis for this admission?: Yes Plan: Advised on the need for tight diabetic control. (8) Hypotension Plan: With holding antihypertensives. Reinstitute prednisone. Monitor. (9) Polymyalgia rheumatica Plan: Would benefit to get notes from her household assistant to confirm this diagnosis. Meanwhile reinstitute prednisone. (10) Hypothyroidism Plan: Apparently she is on thyroid replacements at home. Recommend hospitalist to look if that is the case and then restart her replacements.
[2018-05-17] MEDS: PREDNISONE 10 MG TABLET PO SCH (14:56)
[2018-05-17] MEDS: MAGNESIUM OXIDE 400 MG TABLET PO SCH (17:36)
--- NOTE | 2018-05-17 19:04 | PDOC PROGRESS REPORT ---
Subjective Progress Note for:: 05/17/18 Subjective:: No new complaints. Reason For Visit: ACUTE ON CHRONIC SYSTOLIC CONGESTIVE HEART FAILURE Physical Exam Vital Signs: Temp Pulse Resp BP Pulse Ox 98.8 F 87 16 98/56 L 96 05/17/18 15:52 05/17/18 16:00 05/17/18 16:00 05/17/18 15:52 05/17/18 16:00 Intake & Output 05/16/18 05/17/18 05/18/18 06:59 06:59 06:59 Intake Total 118 Balance 118 General appearance: PRESENT: no acute distress Respiratory exam: PRESENT: rales, other - Positive for slightly increased work of breathing.. ABSENT: rhonchi, wheezes Cardiovascular exam: PRESENT: RRR. ABSENT: gallop, rubs, tachycardia Pulses: PRESENT: other - Diminished distal pulses. GI/Abdominal exam: PRESENT: soft, other - Morbidly obese. Bowel sounds are distant. I am unable to evaluate the abdomen for organomegaly, masses, or hernias.. ABSENT: tenderness Rectal exam: PRESENT: deferred Extremities exam: PRESENT: other - +3 pitting edema of lower extremities bilaterally. Neurological exam: PRESENT: alert, awake, oriented to person, oriented to place , oriented to time, CN II-XII grossly intact. ABSENT: motor sensory deficit Skin exam: PRESENT: dry, intact, warm Results Laboratory Results: 05/17/18 04:45 05/17/18 04:45 Sodium 139.4 Potassium 3.1 L Chloride 104 Carbon Dioxide 25 Anion Gap 10 BUN 46 H Creatinine 1.85 H Est GFR ( Amer) 33 L Est GFR (Non-Af Amer) 27 L Glucose 67 L Calcium 8.1 L Phosphorus 2.3 L Magnesium 1.7 Impressions: Chest X-Ray 05/16/18 13:36 IMPRESSION: 1 Low lung volumes limits detailed. As can best be determined, no acute findings. Assessment & Plan - Diagnosis (1) Acute on chronic renal failure Qualifiers: Acute renal failure type: unspecified Chronic kidney disease stage: stage 3 (moderate) Qualified Code(s): N17.9 - Acute kidney failure, unspecified; N18.3 - Chronic kidney disease, stage 3 (moderate); N18.3 - Chronic kidney disease, stage 3 (moderate); N18.3 - Chronic kidney disease, stage 3 (moderate) Is this a current diagnosis for this admission?: Yes (2) Acute on chronic systolic (congestive) heart failure Is this a current diagnosis for this admission?: Yes Plan: Diruesis. EF 40-45% as of echocardiogram in January of this year. Monitor volume status and electrolytes. (3) CAD (coronary artery disease) Qualifiers: Coronary Disease-Associated Artery/Lesion type: unspecified vessel or lesion type Associated angina: with unspecified angina Is this a current diagnosis for this admission?: Yes Plan: Continue home medications. (4) CKD (chronic kidney disease) stage 3, GFR 30-59 ml/min Is this a current diagnosis for this admission?: Yes Plan: Acutely worse. I appreciate nephrology's assistance. Monitor creatinine and electrolytes. (5) Hypertension Qualifiers: Hypertension type: essential hypertension Qualified Code(s): I10 - Essential (primary) hypertension Is this a current diagnosis for this admission?: Yes Plan: Continue home medications as possible. (6) Hypothyroidism Qualifiers: Hypothyroidism type: acquired Qualified Code(s): E03.9 - Hypothyroidism, unspecified Is this a current diagnosis for this admission?: Yes Plan: Continue synthroid as at home. - Time Time Spent with patient: 25-34 minutes Medications reviewed and adjusted accordingly: Yes
[2018-05-17] MEDS: POTASSIUM CHLORIDE 10 MEQ CAPSULE.ER PO SCH (23:17)
[2018-05-18 04:35] LABS: ANION GAP 11 (5-19); BLOOD UREA NITROGEN 45 mg/dL (7-20); CALCIUM 7.9 mg/dL (8.4-10.2); CARBON DIOXIDE 25 mmol/L (22-30); CHLORIDE 103 mmol/L (98-107); GLUCOSE 103 mg/dL (75-110); POTASSIUM 3.3 mmol/L (3.6-5.0); SODIUM 138.9 mmol/L (137-145)
[2018-05-18] MEDS: HEPARIN SOD (PORCINE) 5,000 UNIT/ML 1 ML SYRINGE SUBCUT SCH ×3 (05:05→21:54)
[2018-05-18] MEDS: FUROSEMIDE INJ/PF 40 MG/4 ML SDV IV SCH ×3 (05:06→21:55)
[2018-05-18] MEDS: LEVOTHYROXINE SODIUM 0.075 MG TABLET PO SCH (05:15)
[2018-05-18] MEDS: LEVOTHYROXINE SODIUM 0.1 MG TABLET PO SCH (05:15)
[2018-05-18] MEDS ORDERED: METOLAZONE 5 MG TABLET PO SCH (08:00)
[2018-05-18] MEDS: POTASSIUM CHLORIDE 10 MEQ CAPSULE.ER PO SCH ×2 (09:21→21:54)
[2018-05-18] MEDS: MAGNESIUM OXIDE 400 MG TABLET PO SCH ×3 (09:21→17:06)
[2018-05-18] MEDS: PREDNISONE 10 MG TABLET PO SCH (09:21)
--- NOTE | 2018-05-18 13:28 | PDOC PROGRESS REPORT ---
Subjective Progress Note for:: 05/18/18 Subjective:: Patient was laying in bed during examination. She was alert and oriented x3. According to the nurse in charge of her care, her blood pressure has remained in the 90s systolic. Patient denies chest pain, SOB, headaches, lightheadedness or dizziness. She also denies nausea, vomiting or constipation. Continues to have the diarrhea. Reason For Visit: ACUTE ON CHRONIC SYSTOLIC CONGESTIVE HEART FAILURE Physical Exam Vital Signs: Temp Pulse Resp BP Pulse Ox 98.0 F 85 17 95/52 L 95 05/18/18 11:50 05/18/18 11:50 05/18/18 11:50 05/18/18 11:50 05/18/18 11:50 Intake & Output 05/17/18 05/18/18 05/19/18 06:59 06:59 06:59 Intake Total 118 Balance 118 Weight 95.8 kg General appearance: PRESENT: no acute distress, well-developed, well-nourished Mouth exam: PRESENT: moist, neck supple Neck exam: PRESENT: full ROM. ABSENT: JVD Respiratory exam: PRESENT: clear to auscultation juancarlos. ABSENT: accessory muscle use, crackles, rales, rhonchi, wheezes Cardiovascular exam: PRESENT: RRR, +S1, +S2 GI/Abdominal exam: PRESENT: normal bowel sounds, soft. ABSENT: organomegaly, tenderness Extremities exam: PRESENT: pedal edema, +2 edema. ABSENT: tenderness Musculoskeletal exam: ABSENT: normal inspection, tenderness Neurological exam: PRESENT: alert, awake, oriented to person, oriented to place , oriented to time, oriented to situation Psychiatric exam: PRESENT: appropriate affect, normal mood Skin exam: PRESENT: dry, intact, warm. ABSENT: cyanosis Results Laboratory Results: 05/18/18 03:45 05/18/18 03:45 Sodium 138.9 Potassium 3.3 L Chloride 103 Carbon Dioxide 25 Anion Gap 11 BUN 45 H Creatinine 1.79 H Est GFR ( Amer) 34 L Est GFR (Non-Af Amer) 28 L Glucose 103 Calcium 7.9 L Magnesium 1.6 Impressions: Chest X-Ray 05/16/18 13:36 IMPRESSION: 1 Low lung volumes limits detailed. As can best be determined, no acute findings. 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 (2) Acute on chronic renal failure Qualifiers: Acute renal failure type: unspecified Chronic kidney disease stage: stage 3 (moderate) Qualified Code(s): N17.9 - Acute kidney failure, unspecified; N18.3 - Chronic kidney disease, stage 3 (moderate); N18.3 - Chronic kidney disease, stage 3 (moderate); N18.3 - Chronic kidney disease, stage 3 (moderate) Is this a current diagnosis for this admission?: Yes Plan: improving, almost to baseline. (3) Hypotension Plan: No pericardial effusion was seen on echo from January. Will check a random cortisol and consider starting midodrine to improve the blood pressure. (4) Hypokalemia Plan: going to increase to 40mEQ bid (5) CKD (chronic kidney disease) stage 3, GFR 30-59 ml/min Is this a current diagnosis for this admission?: Yes Plan: baseline is 1.5. (6) Hypoalbuminemia Plan: will look to start albumin 12.5g q8 for the next few days. This should help with removing more fluid. (7) Type 2 diabetes mellitus Is this a current diagnosis for this admission?: Yes - Notes Notes: case was discussed with Dr. Rico.
[2018-05-18] MEDS: ALBUMIN HUMAN 12.5 GM/50 ML RTUINJ IV SCH ×2 (14:32→21:54)
[2018-05-18] MEDS: METOLAZONE 5 MG TABLET PO SCH (17:06)
--- NOTE | 2018-05-18 18:22 | PDOC PROGRESS REPORT ---
Subjective Progress Note for:: 05/18/18 Subjective:: No new complaints. Reason For Visit: ACUTE ON CHRONIC SYSTOLIC CONGESTIVE HEART FAILURE Physical Exam Vital Signs: Temp Pulse Resp BP Pulse Ox 98.0 F 97 16 100/59 L 96 05/18/18 11:50 05/18/18 16:08 05/18/18 16:08 05/18/18 15:46 05/18/18 16:08 Intake & Output 05/17/18 05/18/18 05/19/18 06:59 06:59 06:59 Intake Total 118 50 Balance 118 50 Weight 95.8 kg General appearance: PRESENT: no acute distress, cooperative Respiratory exam: PRESENT: other - No increased work of breathing. No wheezes or rhonchi. No tactile fremitus. Very small rales at bases. Cardiovascular exam: PRESENT: RRR, other - No lateral PMI. No thrills.. ABSENT : gallop, rubs, systolic murmur Pulses: PRESENT: +2 pedal pulses bilateral, other - Diminished distal pulses. GI/Abdominal exam: PRESENT: soft, other - The abdomen is morbidly obese. Bowel sounds are distant. I am unable to evaluate the abdomen for organomegaly, masses , or hernias.. ABSENT: mass, tenderness Rectal exam: PRESENT: deferred Extremities exam: PRESENT: +2 edema. ABSENT: clubbing, tenderness Musculoskeletal exam: PRESENT: normal inspection. ABSENT: deformity, dislocation, tenderness Neurological exam: PRESENT: alert, awake, oriented to person, oriented to place , oriented to time, oriented to situation, CN II-XII grossly intact. ABSENT: motor sensory deficit Psychiatric exam: PRESENT: appropriate affect, normal mood Skin exam: PRESENT: dry, intact, warm Results Laboratory Results: 05/18/18 03:45 05/18/18 03:45 Sodium 138.9 Potassium 3.3 L Chloride 103 Carbon Dioxide 25 Anion Gap 11 BUN 45 H Creatinine 1.79 H Est GFR ( Amer) 34 L Est GFR (Non-Af Amer) 28 L Glucose 103 Calcium 7.9 L Magnesium 1.6 Impressions: Chest X-Ray 05/16/18 13:36 IMPRESSION: 1 Low lung volumes limits detailed. As can best be determined, no acute findings. Assessment & Plan - Diagnosis (1) Acute on chronic renal failure Qualifiers: Acute renal failure type: unspecified Chronic kidney disease stage: stage 3 (moderate) Qualified Code(s): N17.9 - Acute kidney failure, unspecified; N18.3 - Chronic kidney disease, stage 3 (moderate); N18.3 - Chronic kidney disease, stage 3 (moderate); N18.3 - Chronic kidney disease, stage 3 (moderate) Is this a current diagnosis for this admission?: Yes Plan: Nearing baseline renal status. (2) Acute on chronic systolic (congestive) heart failure Is this a current diagnosis for this admission?: Yes Plan: Diruesis. EF 40-45% as of echocardiogram in January of this year. Monitor volume status and electrolytes. (3) CAD (coronary artery disease) Qualifiers: Coronary Disease-Associated Artery/Lesion type: unspecified vessel or lesion type Associated angina: with unspecified angina Is this a current diagnosis for this admission?: Yes Plan: Continue home medications. (4) CKD (chronic kidney disease) stage 3, GFR 30-59 ml/min Is this a current diagnosis for this admission?: Yes Plan: Acutely worse. I appreciate nephrology's assistance. Monitor creatinine and electrolytes. (5) Hypertension Qualifiers: Hypertension type: essential hypertension Qualified Code(s): I10 - Essential (primary) hypertension Is this a current diagnosis for this admission?: Yes Plan: Continue home medications as possible. (6) Hypothyroidism Qualifiers: Hypothyroidism type: acquired Qualified Code(s): E03.9 - Hypothyroidism, unspecified Is this a current diagnosis for this admission?: Yes Plan: Continue synthroid as at home. - Time Time Spent with patient: 25-34 minutes Medications reviewed and adjusted accordingly: Yes
[2018-05-19] MEDS: HEPARIN SOD (PORCINE) 5,000 UNIT/ML 1 ML SYRINGE SUBCUT SCH ×3 (05:12→23:00)
[2018-05-19] MEDS: FUROSEMIDE INJ/PF 40 MG/4 ML SDV IV SCH ×3 (05:13→20:18)
[2018-05-19] MEDS: ALBUMIN HUMAN 12.5 GM/50 ML RTUINJ IV SCH ×3 (05:14→23:19)
[2018-05-19] MEDS: LEVOTHYROXINE SODIUM 0.075 MG TABLET PO SCH (05:15)
[2018-05-19] MEDS: LEVOTHYROXINE SODIUM 0.1 MG TABLET PO SCH (05:15)
[2018-05-19 07:11] LABS: ANION GAP 12 (5-19); BLOOD UREA NITROGEN 43 mg/dL (7-20); CALCIUM 8.3 mg/dL (8.4-10.2); CARBON DIOXIDE 23 mmol/L (22-30); CHLORIDE 105 mmol/L (98-107); GLUCOSE 115 mg/dL (75-110); POTASSIUM 3.7 mmol/L (3.6-5.0); SODIUM 139.9 mmol/L (137-145)
[2018-05-19] MEDS ORDERED: FUROSEMIDE INJ/PF 40 MG/4 ML SDV IV SCH (10:00)
--- NOTE | 2018-05-19 10:11 | PDOC PROGRESS REPORT ---
Subjective Progress Note for:: 05/19/18 Subjective:: Patient stated that this morning she had brief bout of chest pressure. She says that it happened for a few minutes. It came on suddenly and went away suddenly. She said that it did not radiate anywhere. It was a 8 out of 10. Patient does have history of CAD. That was the only recent event that she has had. It was also brought to my attention by her nurse in charge of her care that she had never received furosemide since being brought up to the 5th floor. It has been held due to her systolic bp being below 110. She denies SOB, fevers or chills. Reason For Visit: ACUTE ON CHRONIC SYSTOLIC CONGESTIVE HEART FAILURE Physical Exam Vital Signs: Temp Pulse Resp BP Pulse Ox 97.7 F 94 17 107/73 98 05/19/18 07:53 05/19/18 07:53 05/19/18 07:53 05/19/18 07:53 05/19/18 07:53 Intake & Output 05/18/18 05/19/18 05/20/18 06:59 06:59 06:59 Intake Total 118 442 Output Total 600 Balance 118 -158 Weight 95.8 kg 104.5 kg General appearance: PRESENT: no acute distress, well-developed, well-nourished Mouth exam: PRESENT: moist, neck supple Neck exam: PRESENT: full ROM, JVD Respiratory exam: PRESENT: crackles. ABSENT: accessory muscle use, clear to auscultation juancarlos, rales, rhonchi, wheezes Cardiovascular exam: PRESENT: RRR, +S1, +S2 Extremities exam: PRESENT: pedal edema, +2 edema. ABSENT: tenderness Musculoskeletal exam: ABSENT: normal inspection, tenderness Neurological exam: PRESENT: alert, awake, oriented to person, oriented to place , oriented to time, oriented to situation Psychiatric exam: PRESENT: appropriate affect, normal mood Skin exam: PRESENT: dry, intact, warm. ABSENT: cyanosis Results Laboratory Results: 05/19/18 06:10 05/19/18 06:10 Sodium 139.9 Potassium 3.7 Chloride 105 Carbon Dioxide 23 Anion Gap 12 BUN 43 H Creatinine 1.95 H Est GFR ( Amer) 31 L Est GFR (Non-Af Amer) 26 L Glucose 115 H Calcium 8.3 L Impressions: Chest X-Ray 05/16/18 13:36 IMPRESSION: 1 Low lung volumes limits detailed. As can best be determined, no acute findings. Assessment & Plan - Diagnosis (1) Acute on chronic systolic (congestive) heart failure Is this a current diagnosis for this admission?: Yes Plan: adjusting furosemide to only be held if bp is below 100 systolic. Also giving midodrine to help increase bp. (2) Acute on chronic renal failure Qualifiers: Acute renal failure type: unspecified Chronic kidney disease stage: stage 3 (moderate) Qualified Code(s): N17.9 - Acute kidney failure, unspecified; N18.3 - Chronic kidney disease, stage 3 (moderate); N18.3 - Chronic kidney disease, stage 3 (moderate); N18.3 - Chronic kidney disease, stage 3 (moderate) Is this a current diagnosis for this admission?: Yes Plan: worsening, due to fluid overload, furosemide will be given today, which will help with fluid overload. (3) Hypotension Plan: starting midodrine 5mg TID (4) Hypokalemia Plan: stable (5) CKD (chronic kidney disease) stage 3, GFR 30-59 ml/min Is this a current diagnosis for this admission?: Yes Plan: baseline is 1.5. (6) Hypoalbuminemia Plan: on albumin 12.5g q8 for the next few days. This should help with removing more fluid. (7) Type 2 diabetes mellitus Is this a current diagnosis for this admission?: Yes
[2018-05-19] MEDS ORDERED: MIDODRINE HCL 5 MG TABLET PO SCH ×2 (11:00→17:00)
[2018-05-19] MEDS: PREDNISONE 10 MG TABLET PO SCH (11:51)
[2018-05-19] MEDS: POTASSIUM CHLORIDE 10 MEQ CAPSULE.ER PO SCH ×2 (11:51→23:18)
[2018-05-19] MEDS: METOLAZONE 5 MG TABLET PO SCH ×2 (11:51→20:20)
[2018-05-19] MEDS: MAGNESIUM OXIDE 400 MG TABLET PO SCH ×3 (11:51→20:20)
[2018-05-19] MEDS ORDERED: MIDODRINE HCL 5 MG TABLET PO ONE (14:00)
[2018-05-19 15:09] LABS: HEMATOCRIT 32.4 % (36.0-47.0); HEMOGLOBIN 10.7 g/dL (12.0-15.5); MEAN CORPUSCULAR HEMOGLOBIN 28.6 pg (27.0-33.4); MEAN CORPUSCULAR VOLUME 87 fl (80-97); PLATELET COUNT 137 10^3/uL (150-450); RED BLOOD COUNT 3.74 10^6/uL (3.72-5.28); RED CELL DISTRIBUTION WIDTH 19.9 % (11.5-14.0); WHITE BLOOD COUNT 8.4 10^3/uL (4.0-10.5)
[2018-05-19 15:34] LABS: ABSOLUTE LYMPHOCYTES# (MANUAL) 0.5 10^3/uL (0.5-4.7); ABSOLUTE MONOCYTES # (MANUAL) 0.3 10^3/uL (0.1-1.4); ABSOLUTE NEUTROPHILS# (MANUAL) 7.6 10^3/uL (1.7-8.2); BASOPHILS % (MANUAL) 0 % (0-2); EOSINOPHILS % (MANUAL) 0 % (0-6); LYMPHOCYTES % (MANUAL) 6 % (13-45); MONOCYTES % (MANUAL) 4 % (3-13); SEGMENTED NEUTROPHILS % (MAN) 90 % (42-78); TOTAL CELLS COUNTED 100
[2018-05-19 15:35] LABS: ANISOCYTOSIS 2+; OVALOCYTES SLIGHT; POIKILOCYTOSIS SLIGHT; TOXIC GRANULATION SLIGHT
[2018-05-19 15:36] LABS: PLATELET COMMENT DECREASED; SCHISTOCYTES SLIGHT
[2018-05-19] MEDS ORDERED: MAG HYDROX/AL HYDROX/SIMETH SUSP 30 ML UDCUP PO PRN (16:28)
[2018-05-19] MEDS: LANSOPRAZOLE 30 MG TAB.RAP.DR PO SCH (17:45)
[2018-05-19] MEDS: MIDODRINE HCL 5 MG TABLET PO SCH (17:45)
--- NOTE | 2018-05-19 17:49 | PDOC PROGRESS REPORT ---
Subjective Progress Note for:: 05/19/18 Subjective:: The patient has been complaining of a burning in her mid chest since this morning. Reason For Visit: ACUTE ON CHRONIC SYSTOLIC CONGESTIVE HEART FAILURE Physical Exam Vital Signs: Temp Pulse Resp BP Pulse Ox 97.9 F 90 17 88/58 L 97 05/19/18 16:00 05/19/18 16:00 05/19/18 16:00 05/19/18 16:00 05/19/18 16:00 Intake & Output 05/18/18 05/19/18 05/20/18 06:59 06:59 06:59 Intake Total 118 492 Output Total 600 Balance 118 -108 Weight 95.8 kg 104.5 kg General appearance: PRESENT: mild distress - Burning pain in the middle of her chest since this morning., morbidly obese Respiratory exam: PRESENT: other - No increased work of breathing.. ABSENT: rales, rhonchi, wheezes Cardiovascular exam: PRESENT: RRR. ABSENT: gallop, rubs, systolic murmur GI/Abdominal exam: PRESENT: soft. ABSENT: hernia, mass, organolmegaly, tenderness Extremities exam: PRESENT: full ROM. ABSENT: clubbing, tenderness Musculoskeletal exam: PRESENT: normal inspection. ABSENT: deformity, dislocation, tenderness Neurological exam: PRESENT: alert, awake, oriented to person, oriented to place , oriented to time, oriented to situation, CN II-XII grossly intact. ABSENT: motor sensory deficit Psychiatric exam: PRESENT: appropriate affect, normal mood Skin exam: PRESENT: dry, intact, warm Results Laboratory Results: 05/19/18 06:10 05/19/18 06:10 05/19/18 05/19/18 06:10 06:10 WBC 8.4 RBC 3.74 Hgb 10.7 L Hct 32.4 L MCV 87 MCH 28.6 MCHC 33.0 RDW 19.9 H Plt Count 137 L Seg Neutrophils % Not Reportable Lymphocytes % Not Reportable Monocytes % Not Reportable Eosinophils % Not Reportable Basophils % Not Reportable Absolute Neutrophils Not Reportable Absolute Lymphocytes Not Reportable Absolute Monocytes Not Reportable Absolute Eosinophils Not Reportable Absolute Basophils Not Reportable Sodium 139.9 Potassium 3.7 Chloride 105 Carbon Dioxide 23 Anion Gap 12 BUN 43 H Creatinine 1.95 H Est GFR ( Amer) 31 L Est GFR (Non-Af Amer) 26 L Glucose 115 H Calcium 8.3 L 08/23/18 11:05 Troponin I 0.016 Impressions: Chest X-Ray 05/16/18 13:36 IMPRESSION: 1 Low lung volumes limits detailed. As can best be determined, no acute findings. Assessment & Plan - Diagnosis (1) Acute on chronic renal failure Qualifiers: Acute renal failure type: unspecified Chronic kidney disease stage: stage 3 (moderate) Qualified Code(s): N17.9 - Acute kidney failure, unspecified; N18.3 - Chronic kidney disease, stage 3 (moderate); N18.3 - Chronic kidney disease, stage 3 (moderate); N18.3 - Chronic kidney disease, stage 3 (moderate) Is this a current diagnosis for this admission?: Yes Plan: Nearing baseline renal status. (2) Acute on chronic systolic (congestive) heart failure Is this a current diagnosis for this admission?: Yes Plan: Diruesis. EF 40-45% as of echocardiogram in January of this year. Monitor volume status and electrolytes. (3) CAD (coronary artery disease) Qualifiers: Coronary Disease-Associated Artery/Lesion type: unspecified vessel or lesion type Associated angina: with unspecified angina Is this a current diagnosis for this admission?: Yes Plan: Continue home medications. (4) CKD (chronic kidney disease) stage 3, GFR 30-59 ml/min Is this a current diagnosis for this admission?: Yes Plan: Acutely worse. I appreciate nephrology's assistance. Monitor creatinine and electrolytes. (5) Hypertension Qualifiers: Hypertension type: essential hypertension Qualified Code(s): I10 - Essential (primary) hypertension Is this a current diagnosis for this admission?: Yes Plan: Continue home medications as possible. (6) Hypothyroidism Qualifiers: Hypothyroidism type: acquired Qualified Code(s): E03.9 - Hypothyroidism, unspecified Is this a current diagnosis for this admission?: Yes Plan: Continue synthroid as at home. (7) Chest pain at rest Is this a current diagnosis for this admission?: Yes Plan: Will rule out ID by EKG and enzyme criteria, but will also give the patient maalox and lansoprazole for likely esophagitis and GERD. - Time Time Spent with patient: 35 or more minutes
--- NOTE | 2018-05-19 20:42 | EKG REPORT ---
SEVERITY:- ABNORMAL ECG - ATRIAL-SENSED VENTRICULAR-PACED COMPLEXES VPC : Confirmed by: Jaren Morales 19-May-2018 20:41:24
[2018-05-19] MEDS: ONDANSETRON HCL INJ/PF 4 MG/2 ML SDV IV PRN (22:26)
[2018-05-20] MEDS: MIDODRINE HCL 5 MG TABLET PO SCH ×3 (01:04→17:33)
[2018-05-20] MEDS: FUROSEMIDE INJ/PF 40 MG/4 ML SDV IV SCH ×4 (02:20→18:48)
[2018-05-20] MEDS ORDERED: NITROGLYCERIN 0.4 MG/TAB 25 TAB/BOTTLE ONE (03:08)
[2018-05-20] MEDS ORDERED: NITROGLYCERIN 0.4 MG/TAB 25 TAB/BOTTLE SL PRN (03:13)
[2018-05-20 03:25] LABS: HEMATOCRIT 31.7 % (36.0-47.0); HEMOGLOBIN 10.7 g/dL (12.0-15.5); MEAN CORPUSCULAR HEMOGLOBIN 29.3 pg (27.0-33.4); MEAN CORPUSCULAR HGB CONC 33.6 g/dL (32.0-36.0); MEAN CORPUSCULAR VOLUME 87 fl (80-97); PLATELET COUNT 138 10^3/uL (150-450); RED BLOOD COUNT 3.64 10^6/uL (3.72-5.28); RED CELL DISTRIBUTION WIDTH 20.4 % (11.5-14.0); RETICULOCYTE COUNT (AUTO) 1.36 % (0.66-2.85); WHITE BLOOD COUNT 9.1 10^3/uL (4.0-10.5)
[2018-05-20 03:45] LABS: ANION GAP 15 (5-19); BLOOD UREA NITROGEN 44 mg/dL (7-20); CALCIUM 8.3 mg/dL (8.4-10.2); CARBON DIOXIDE 20 mmol/L (22-30); CHLORIDE 105 mmol/L (98-107); GLUCOSE 101 mg/dL (75-110); IRON(TIBC) 66.1 ug/dL (37-170); SODIUM 140.2 mmol/L (137-145)
[2018-05-20 04:51] LABS: FOLATE 7.93 ng/mL (>2.76)
[2018-05-20 05:06] LABS: POTASSIUM 4.7 mmol/L (3.6-5.0)
[2018-05-20] MEDS: HEPARIN SOD (PORCINE) 5,000 UNIT/ML 1 ML SYRINGE SUBCUT SCH ×3 (05:33→21:51)
[2018-05-20] MEDS: ALBUMIN HUMAN 12.5 GM/50 ML RTUINJ IV SCH ×3 (05:41→21:51)
[2018-05-20] MEDS: LEVOTHYROXINE SODIUM 0.075 MG TABLET PO SCH (05:44)
[2018-05-20] MEDS: LANSOPRAZOLE 30 MG TAB.RAP.DR PO SCH ×2 (05:44→17:29)
[2018-05-20] MEDS: LEVOTHYROXINE SODIUM 0.1 MG TABLET PO SCH (05:44)
--- NOTE | 2018-05-20 09:11 | EKG REPORT ---
SEVERITY:- ABNORMAL ECG - ATRIAL-SENSED VENTRICULAR-PACED RHYTHM : Confirmed by: Jaren Morales 20-May-2018 09:11:17
--- NOTE | 2018-05-20 09:12 | EKG REPORT ---
SEVERITY:- ABNORMAL ECG - ATRIAL-SENSED VENTRICULAR-PACED RHYTHM : Confirmed by: Jaren Morales 20-May-2018 09:11:29
--- NOTE | 2018-05-20 11:06 | PDOC PROGRESS REPORT ---
Subjective Progress Note for:: 05/20/18 Subjective:: Patient had chest pain last night. An EKG was done, which was normal. She denies having chest pain this morning. She also denies shortness of breath, fever or chills. Blood pressure has slightly improved from hypotensive to the lower end of normaltensive. Reason For Visit: ACUTE ON CHRONIC SYSTOLIC CONGESTIVE HEART FAILURE Physical Exam Vital Signs: Temp Pulse Resp BP Pulse Ox 98.5 F 90 17 91/68 L 98 05/20/18 07:30 05/20/18 07:30 05/20/18 07:30 05/20/18 07:30 05/20/18 07:30 Intake & Output 05/19/18 05/20/18 05/21/18 06:59 06:59 06:59 Intake Total 492 434 Output Total 600 250 Balance -108 184 Weight 104.5 kg 104.9 kg Cardiovascular exam: PRESENT: RRR, +S1, +S2 GI/Abdominal exam: PRESENT: normal bowel sounds, soft. ABSENT: organomegaly, tenderness Results Laboratory Results: 05/20/18 03:17 05/20/18 03:17 05/19/18 05/20/18 05/20/18 06:10 03:17 03:17 WBC 8.4 9.1 RBC 3.74 3.64 L Hgb 10.7 L 10.7 L Hct 32.4 L 31.7 L MCV 87 87 MCH 28.6 29.3 MCHC 33.0 33.6 RDW 19.9 H 20.4 H Plt Count 137 L 138 L Seg Neutrophils % Not Reportable Lymphocytes % Not Reportable Monocytes % Not Reportable Eosinophils % Not Reportable Basophils % Not Reportable Absolute Neutrophils Not Reportable Absolute Lymphocytes Not Reportable Absolute Monocytes Not Reportable Absolute Eosinophils Not Reportable Absolute Basophils Not Reportable Retic Count (auto) 1.36 Absolute Retic 0.050 Sodium 140.2 Potassium 4.7 D Chloride 105 Carbon Dioxide 20 L Anion Gap 15 BUN 44 H Creatinine 2.24 H Est GFR ( Amer) 26 L Est GFR (Non-Af Amer) 22 L Glucose 101 Calcium 8.3 L Iron 66.1 TIBC 139 L % Saturation 48 Ferritin 1020.00 H Vitamin B12 > 1000.0 H Folate 7.93 05/19/18 05/19/18 05/19/18 11:05 17:10 22:51 Troponin I 0.016 0.015 0.016 05/20/18 03:17 Troponin I 0.023 Impressions: Chest X-Ray 05/16/18 13:36 IMPRESSION: 1 Low lung volumes limits detailed. As can best be determined, no acute findings. Assessment & Plan - Diagnosis (1) Acute on chronic systolic (congestive) heart failure Is this a current diagnosis for this admission?: Yes Plan: Increasing furosemide to 80mg q8 and changing parameters to have it only held if the systolic bp is 90 or below. Awaiting echo. (2) Acute on chronic renal failure Qualifiers: Acute renal failure type: unspecified Chronic kidney disease stage: stage 3 (moderate) Qualified Code(s): N17.9 - Acute kidney failure, unspecified; N18.3 - Chronic kidney disease, stage 3 (moderate); N18.3 - Chronic kidney disease, stage 3 (moderate); N18.3 - Chronic kidney disease, stage 3 (moderate) Is this a current diagnosis for this admission?: Yes Plan: worsening due to decreased perfusion the kidneys and due to CHF. Increasing furosemide to 80 q8 and changing parameters for it to be only held with a systolic bp of less than 90. Also increased the midodrine to 10mg TID. If patient becomes short of breath due to fluid overload she may need to be started on dialysis. Due to the decreased blood pressure she would need to be transferred to a hospital with CRRT capabilities if she was needed to start dialysis again. Currently no indication to start her on dialysis as of today. (3) Hypotension Plan: increasing midodrine to 10mg TID, awaiting blood cultures and echo. If 10mg of midodrine does not keep the bp above 90 systolic, then she may need to be transferred to the ICU and started on levophed drip (4) Hypokalemia Plan: stopping potassium supplement for now. Currently with the state of the kidneys, she is not getting the potassium out of her body like it should be. (5) CKD (chronic kidney disease) stage 3, GFR 30-59 ml/min Is this a current diagnosis for this admission?: Yes Plan: baseline is 1.5. (6) Hypoalbuminemia Plan: on albumin 12.5g q8 for the next few days. This should help with removing more fluid. (7) Type 2 diabetes mellitus Is this a current diagnosis for this admission?: Yes - Notes Notes: case was discussed with Dr. Rico
[2018-05-20] MEDS: MAGNESIUM OXIDE 400 MG TABLET PO SCH ×3 (11:33→18:10)
[2018-05-20] MEDS: METOLAZONE 5 MG TABLET PO SCH ×2 (11:34→17:29)
[2018-05-20] MEDS: PREDNISONE 10 MG TABLET PO SCH (11:34)
[2018-05-20] MEDS ORDERED: MIDODRINE HCL 5 MG TABLET PO ONE (12:00)
[2018-05-20 12:31] LABS: CREATINE KINASE MB 0.36 ng/mL (<4.55); TROPONIN I 0.021 ng/mL
[2018-05-20 18:51] LABS: CREATINE KINASE MB 0.41 ng/mL (<4.55); TROPONIN I 0.021 ng/mL
--- NOTE | 2018-05-20 19:14 | XCELERA REPORT ---
[address] [address] Transthoracic Echocardiogram Report Name: SIMEON ROSA Age: 67 yrs Gender: Female : 1950 Patient Status: Inpatient Patient Location: [address] [place] [address] Study Date: 05/20/2018 10:16 AM Procedure: A complete two-dimensional transthoracic echocardiogram was performed (2D, M-mode, spectral and color flow Doppler). The study was technically adequate with some images being suboptimal in quality. Reason For Study: shortness of breath,compare to previous echo Ordering Physician: JACKIE LATHAM Performed By: Anali Cotter Interpretation Summary LV EF is 25% Left ventricular systolic function is severely reduced. There is normal left ventricular wall thickness. The left ventricle is grossly normal size. LV diastolic function could not be adequately assessed. There is severe global hypokinesis of the left ventricle. The right ventricle is mildly dilated. There is normal right ventricular wall thickness. The right ventricular systolic function is moderately reduced. The right atrium is mildly dilated. The left atrium is mildly dilated. There is a mild to moderate amount of mitral regurgitation There is no mitral valve stenosis. There is a mild amount of aortic regurgitation There is no aortic valve stenosis There is a moderate to severe amount of tricuspid regurgitation There is no tricuspid stenosis. The aortic root is not well visualized but is probably normal size. The inferior vena cava was not well visualized There is no pericardial effusion. Pacemaker wire noted. MMode/2D Measurements & Calculations RVDd: 3.6 cm LVIDd: 5.8 cm FS: 11.4 % Ao root diam: 2.4 cm IVSd: 0.61 cm LVIDs: 5.1 cm EDV(Teich): 164.1 ml Ao root area: 4.4 cm2 LVPWd: 0.72 cm ESV(Teich): 124.2 ml EF(Teich): 24.3 % Doppler Measurements & Calculations Ao V2 max: AI max maricarmen: LV V1 max PG: PA V2 max: 82.7 cm/sec 331.7 cm/sec 2.6 mmHg 85.6 cm/sec Ao max P.7 mmHg AI max P.0 mmHg LV V1 max: PA max PG: AI dec slope: 81.1 cm/sec 2.9 mmHg 165.7 cm/sec2 AI P1/2t: 586.5 msec PI max maricarmen: TR max maricarmen: 227.6 cm/sec 271.1 cm/sec PI max P.7 mmHg TR max P.5 mmHg PI dec slope: 410.0 cm/sec2 Left Ventricle The left ventricle is grossly normal size. There is normal left ventricular wall thickness. Left ventricular systolic function is severely reduced. LV EF is 25%. LV diastolic function could not be adequately assessed. There is severe global hypokinesis of the left ventricle. Right Ventricle The right ventricle is mildly dilated. There is normal right ventricular wall thickness. The right ventricular systolic function is moderately reduced. Atria The right atrium is mildly dilated. The left atrium is mildly dilated. Mitral Valve The mitral valve is grossly normal. There is no mitral valve stenosis. There is a mild to moderate amount of mitral regurgitation. Aortic Valve The aortic valve is mildly calcified. There is no aortic valve stenosis. There is a mild amount of aortic regurgitation. Tricuspid Valve The tricuspid valve is not well visualized, but is grossly normal. There is no tricuspid stenosis. There is a moderate to severe amount of tricuspid regurgitation. Pulmonic Valve The pulmonic valve is not well seen, but is grossly normal. Great Vessels The aortic root is not well visualized but is probably normal size. The inferior vena cava was not well visualized. Effusions There is no pericardial effusion. Incidental Findings Pacemaker wire noted. : JACKIE LATHAM > Jaren Morales
--- NOTE | 2018-05-20 19:16 | PDOC PROGRESS REPORT ---
Subjective Progress Note for:: 05/20/18 Subjective:: The patient is not eating. She states that she can't because her mouth hurts. Reason For Visit: ACUTE ON CHRONIC SYSTOLIC CONGESTIVE HEART FAILURE Physical Exam Vital Signs: Temp Pulse Resp BP Pulse Ox 98.7 F 87 17 93/59 L 97 05/20/18 14:51 05/20/18 14:51 05/20/18 14:51 05/20/18 14:51 05/20/18 14:51 Intake & Output 05/19/18 05/20/18 05/21/18 06:59 06:59 06:59 Intake Total 492 484 0 Output Total 600 250 Balance -108 234 0 Weight 104.5 kg 104.9 kg General appearance: PRESENT: no acute distress, cooperative Respiratory exam: PRESENT: other - No increased work of breathing.. ABSENT: rales, rhonchi, wheezes Cardiovascular exam: PRESENT: RRR, other - No lateral PMI. No thrills.. ABSENT : gallop, rubs, systolic murmur Pulses: PRESENT: other - Diminished distal pulses. GI/Abdominal exam: PRESENT: normal bowel sounds, soft. ABSENT: distended, hernia, mass, tenderness Extremities exam: PRESENT: other - Chronic edema to lower extremities bilaterally.. ABSENT: clubbing, joint swelling, tenderness Musculoskeletal exam: ABSENT: deformity, dislocation, full ROM, tenderness Neurological exam: PRESENT: alert, awake, oriented to person, oriented to place , oriented to time, oriented to situation, CN II-XII grossly intact. ABSENT: motor sensory deficit Skin exam: PRESENT: dry, intact, warm Results Laboratory Results: 05/20/18 03:17 05/20/18 03:17 05/20/18 05/20/18 05/20/18 03:17 03:17 03:17 WBC 9.1 RBC 3.64 L Hgb 10.7 L Hct 31.7 L MCV 87 MCH 29.3 MCHC 33.6 RDW 20.4 H Plt Count 138 L Retic Count (auto) 1.36 Absolute Retic 0.050 Sodium 140.2 Potassium 4.7 D Chloride 105 Carbon Dioxide 20 L Anion Gap 15 BUN 44 H Creatinine 2.24 H Est GFR ( Amer) 26 L Est GFR (Non-Af Amer) 22 L Glucose 101 Calcium 8.3 L Magnesium 1.8 Iron 66.1 TIBC 139 L % Saturation 48 Ferritin 1020.00 H Vitamin B12 > 1000.0 H Folate 7.93 05/19/18 05/19/18 05/19/18 11:05 17:10 22:51 Creatine Kinase CK-MB (CK-2) Troponin I 0.016 0.015 0.016 05/20/18 05/20/18 05/20/18 03:17 11:30 11:30 Creatine Kinase 21 L CK-MB (CK-2) 0.36 Troponin I 0.023 0.021 05/20/18 05/20/18 17:45 17:45 Creatine Kinase 28 L CK-MB (CK-2) 0.41 Troponin I 0.021 Impressions: Chest X-Ray 05/16/18 13:36 IMPRESSION: 1 Low lung volumes limits detailed. As can best be determined, no acute findings. Assessment & Plan - Diagnosis (1) Acute on chronic renal failure Qualifiers: Acute renal failure type: unspecified Chronic kidney disease stage: stage 3 (moderate) Qualified Code(s): N17.9 - Acute kidney failure, unspecified; N18.3 - Chronic kidney disease, stage 3 (moderate); N18.3 - Chronic kidney disease, stage 3 (moderate); N18.3 - Chronic kidney disease, stage 3 (moderate) Is this a current diagnosis for this admission?: Yes Plan: Creatinine increasing. Monitor. (2) Acute on chronic systolic (congestive) heart failure Is this a current diagnosis for this admission?: Yes (3) CAD (coronary artery disease) Qualifiers: Coronary Disease-Associated Artery/Lesion type: unspecified vessel or lesion type Associated angina: with unspecified angina Is this a current diagnosis for this admission?: Yes Plan: Continue home medicationsas possible. Unfortunately due to the patient's low blood pressures many of her blood pressure and cardiac medications cannot be continued. (4) CKD (chronic kidney disease) stage 3, GFR 30-59 ml/min Is this a current diagnosis for this admission?: Yes Plan: Creatinine is up to 2.24. I appreciate nephrology's assistance. Monitor creatinine and electrolytes. (5) Hypertension Qualifiers: Hypertension type: essential hypertension Qualified Code(s): I10 - Essential (primary) hypertension Is this a current diagnosis for this admission?: Yes Plan: Continue home medications as possible. These are all being held due to the patient's low blood pressures. Echocardiogram pending. (6) Hypothyroidism Qualifiers: Hypothyroidism type: acquired Qualified Code(s): E03.9 - Hypothyroidism, unspecified Is this a current diagnosis for this admission?: Yes Plan: Continue synthroid as at home. - Time Time Spent with patient: 25-34 minutes Medications reviewed and adjusted accordingly: Yes
[2018-05-20] MEDS: ONDANSETRON HCL INJ/PF 4 MG/2 ML SDV IV PRN (20:49)
[2018-05-20] MEDS: NYSTATIN/DEXAMETH/DIPHEN SUSP 120 ML PO SCH ×2 (21:50→23:43)
[2018-05-20] MEDS: DEXTROSE 50%-WATER SYRINGE 12.5 GM/25 ML DOSE IV PRN (23:00)
[2018-05-20] MEDS: METOCLOPRAMIDE HCL INJ/PF 10 MG/2 ML SDV IV PRN (23:43)
[2018-05-21] MEDS: MIDODRINE HCL 5 MG TABLET PO SCH ×3 (00:21→17:12)
[2018-05-21] MEDS ORDERED: CEFTRIAXONE 1 GM/D5W RTU 1 GM/50 ML RTUPB IV ONE (01:00)
[2018-05-21] MEDS ORDERED: CEFTRIAXONE INJ 500 MG VIAL ONE (01:03)
[2018-05-21] MEDS: POTASSIUM CHLORIDE 10 MEQ CAPSULE.ER PO SCH (02:24)
[2018-05-21] MEDS: FUROSEMIDE INJ/PF 40 MG/4 ML SDV IV SCH ×4 (02:40→19:00)
[2018-05-21] MEDS: HEPARIN SOD (PORCINE) 5,000 UNIT/ML 1 ML SYRINGE SUBCUT SCH ×3 (06:00→21:30)
[2018-05-21] MEDS: ALBUMIN HUMAN 12.5 GM/50 ML RTUINJ IV SCH ×2 (06:05→17:05)
[2018-05-21] MEDS: NYSTATIN/DEXAMETH/DIPHEN SUSP 120 ML PO SCH ×3 (06:05→17:23)
[2018-05-21] MEDS: LEVOTHYROXINE SODIUM 0.1 MG TABLET PO SCH (06:06)
[2018-05-21] MEDS: LANSOPRAZOLE 30 MG TAB.RAP.DR PO SCH ×2 (06:06→16:59)
[2018-05-21] MEDS: LEVOTHYROXINE SODIUM 0.075 MG TABLET PO SCH (06:06)
[2018-05-21] MEDS ORDERED: VANCOMYCIN HCL 0 MG in DEXTROSE 5%-WATER 250 ML IV NR (08:45)
[2018-05-21] MEDS: ONDANSETRON HCL INJ/PF 4 MG/2 ML SDV IV PRN (09:56)
[2018-05-21] MEDS: METOLAZONE 5 MG TABLET PO SCH ×2 (10:04→17:02)
[2018-05-21] MEDS: MAGNESIUM OXIDE 400 MG TABLET PO SCH ×3 (10:04→17:02)
[2018-05-21] MEDS: PREDNISONE 10 MG TABLET PO SCH (10:12)
[2018-05-21] MEDS: PROMETHAZINE HCL INJ 25 MG/1 ML VIAL IV PRN ×2 (11:47→15:35)
--- NOTE | 2018-05-21 12:16 | RADIOLOGY REPORT (SQ) ---
EXAM DESCRIPTION: KUB/ABDOMEN (SINGLE VIEW) COMPLETED DATE/TIME: 05/21/2018 11:48 am REASON FOR STUDY: nausea and vomiting COMPARISON: None. NUMBER OF VIEWS: One view. TECHNIQUE: Supine radiographic image of the abdomen acquired. LIMITATIONS: None. FINDINGS: BOWEL GAS PATTERN: Normal bowel gas pattern. No dilated loops. CALCIFICATIONS: No suspicious calcifications. SOFT TISSUES: No gross mass or suggestion of organomegaly. HARDWARE: None in the abdomen. BONES: No acute fracture. Degenerative changes in the spine. No worrisome bone lesions. OTHER: No other significant finding. IMPRESSION: NO RADIOGRAPHIC EVIDENCE FOR ACUTE ABDOMINAL DISEASE. TECHNICAL DOCUMENTATION: JOB ID: [id number] [employer]- All Rights Reserved Reading location - IP/workstation name: [email or web address]
[2018-05-21] MEDS ORDERED: VANCOMYCIN HCL 1,000 MG in DEXTROSE 5%-WATER 250 ML IV ONE (13:30)
[2018-05-21] MEDS: METOCLOPRAMIDE HCL INJ/PF 10 MG/2 ML SDV IV PRN (14:46)
[2018-05-21] MEDS: NYSTATIN TOPICAL POWDER 15 GM TP SCH (15:02)
[2018-05-21] MEDS: OXYCODONE-ACETAMINOPHEN 5-325 MG TABLET PO PRN (17:23)
--- NOTE | 2018-05-21 18:57 | PDOC PROGRESS REPORT ---
Subjective Progress Note for:: 05/21/18 Subjective:: The patient is vomiting today. Reason For Visit: ACUTE ON CHRONIC SYSTOLIC CONGESTIVE HEART FAILURE Physical Exam Vital Signs: Temp Pulse Resp BP Pulse Ox 97.6 F 88 16 90/44 L 100 05/21/18 14:44 05/21/18 14:44 05/21/18 14:44 05/21/18 14:44 05/21/18 14:44 Intake & Output 05/20/18 05/21/18 05/22/18 06:59 06:59 06:59 Intake Total 484 50 300 Output Total 250 100 Balance 234 50 200 Weight 104.9 kg 104.9 kg General appearance: PRESENT: mild distress, morbidly obese Respiratory exam: PRESENT: other - No increased work of breathing. No wheezes, rales, or rhonchi. No tactile fremitus. Cardiovascular exam: PRESENT: RRR, other - No lateral PMI. No thrills.. ABSENT : gallop, rubs, systolic murmur Pulses: PRESENT: normal dorsalis pedis pul. ABSENT: normal femoral pulses GI/Abdominal exam: PRESENT: hypoactive bowel sounds, soft. ABSENT: distended, hernia, mass, tenderness Extremities exam: PRESENT: +2 edema - +3.. ABSENT: clubbing, joint swelling, tenderness Musculoskeletal exam: ABSENT: deformity, dislocation Neurological exam: PRESENT: alert, awake, oriented to person, oriented to place , oriented to time, oriented to situation, CN II-XII grossly intact. ABSENT: motor sensory deficit Psychiatric exam: PRESENT: appropriate affect, normal mood Skin exam: PRESENT: dry, intact, warm Results Laboratory Results: 05/20/18 03:17 05/20/18 03:17 05/19/18 05/19/18 05/19/18 11:05 17:10 22:51 Creatine Kinase CK-MB (CK-2) Troponin I 0.016 0.015 0.016 05/20/18 05/20/18 05/20/18 03:17 11:30 11:30 Creatine Kinase 21 L CK-MB (CK-2) 0.36 Troponin I 0.023 0.021 05/20/18 05/20/18 17:45 17:45 Creatine Kinase 28 L CK-MB (CK-2) 0.41 Troponin I 0.021 05/19/18 19:48 Blood Culture - Preliminary Blood Gram Negative Rods 05/19/18 19:14 Blood Culture - Preliminary Blood Gram Positive Cocci Clusters Impressions: Chest X-Ray 05/16/18 13:36 IMPRESSION: 1 Low lung volumes limits detailed. As can best be determined, no acute findings. KUB X-Ray 05/21/18 00:00 IMPRESSION: NO RADIOGRAPHIC EVIDENCE FOR ACUTE ABDOMINAL DISEASE. Assessment & Plan - Diagnosis (1) Acute on chronic renal failure Qualifiers: Acute renal failure type: unspecified Chronic kidney disease stage: stage 3 (moderate) Qualified Code(s): N17.9 - Acute kidney failure, unspecified; N18.3 - Chronic kidney disease, stage 3 (moderate); N18.3 - Chronic kidney disease, stage 3 (moderate); N18.3 - Chronic kidney disease, stage 3 (moderate) Is this a current diagnosis for this admission?: Yes Plan: Creatinine at baseline. Monitor. (2) Acute on chronic systolic (congestive) heart failure Is this a current diagnosis for this admission?: Yes Plan: Diruesis. EF 25% on current echo. Quite different from echocardiogram in January of this year. Unable to diurese due to the patient's low blood pressure. (3) CAD (coronary artery disease) Qualifiers: Coronary Disease-Associated Artery/Lesion type: unspecified vessel or lesion type Associated angina: with unspecified angina Is this a current diagnosis for this admission?: Yes Plan: Continue home medicationsas possible. Unfortunately due to the patient's low blood pressures many of her blood pressure and cardiac medications cannot be continued. (4) CKD (chronic kidney disease) stage 3, GFR 30-59 ml/min Is this a current diagnosis for this admission?: Yes Plan: Creatinine is up to 2.24. I appreciate nephrology's assistance. Monitor creatinine and electrolytes. (5) Hypertension Qualifiers: Hypertension type: essential hypertension Qualified Code(s): I10 - Essential (primary) hypertension Is this a current diagnosis for this admission?: Yes Plan: Continue home medications as possible. These are all being held due to the patient's low blood pressures. Echocardiogram demonstrated decrease in the patient's EF to 25%. (6) Hypothyroidism Qualifiers: Hypothyroidism type: acquired Qualified Code(s): E03.9 - Hypothyroidism, unspecified Is this a current diagnosis for this admission?: Yes Plan: Continue synthroid as at home. (7) Gram-negative bacteremia Is this a current diagnosis for this admission?: Yes Plan: IV Zosyn. Await ID and sensitivities. (8) Gram-positive cocci bacteremia Is this a current diagnosis for this admission?: Yes Plan: IV Vancomycin. Await ID and sensitivities. (9) Nausea & vomiting Qualifiers: Vomiting Intractability: non-intractable Is this a current diagnosis for this admission?: Yes Plan: Abdominal film does not show obstruction or constipation. Will check stool for C diff. - Time Time Spent with patient: 35 or more minutes Medications reviewed and adjusted accordingly: Yes - Inpatient Certification Medical Necessity: Need Close Monitoring Due to Risk of Patient Decompensation, Need For Continuous Telemetry Monitoring, Risk of Complication if Not Cared For in Hospital
[2018-05-21] MEDS ORDERED: CEFTRIAXONE 1 GM/D5W RTU 1 GM/50 ML RTUPB IV SCH (22:00)
[2018-05-21] MEDS ORDERED: CEFTRIAXONE SODIUM 1,000 MG in NORMAL SALINE 50 ML IV SCH (22:00)
[2018-05-22] MEDS: ALBUMIN HUMAN 12.5 GM/50 ML RTUINJ IV SCH ×3 (01:58→18:04)
[2018-05-22] MEDS: NYSTATIN/DEXAMETH/DIPHEN SUSP 120 ML PO SCH ×4 (01:59→18:12)
[2018-05-22] MEDS: MIDODRINE HCL 5 MG TABLET PO SCH ×4 (01:59→18:04)
[2018-05-22] MEDS: FUROSEMIDE INJ/PF 40 MG/4 ML SDV IV SCH ×3 (01:59→18:03)
[2018-05-22] MEDS: HEPARIN SOD (PORCINE) 5,000 UNIT/ML 1 ML SYRINGE SUBCUT SCH ×3 (06:29→22:42)
[2018-05-22] MEDS: LANSOPRAZOLE 30 MG TAB.RAP.DR PO SCH ×2 (06:34→18:04)
[2018-05-22] MEDS: LEVOTHYROXINE SODIUM 0.075 MG TABLET PO SCH (06:34)
[2018-05-22] MEDS: LEVOTHYROXINE SODIUM 0.1 MG TABLET PO SCH (06:34)
[2018-05-22 08:39] LABS: ABSOLUTE LYMPHOCYTES (AUTO) 0.9 10^3/uL (0.5-4.7); ABSOLUTE MONOCYTES (AUTO) 0.7 10^3/uL (0.1-1.4); ABSOLUTE NEUT (AUTO) 10.2 10^3/uL (1.7-8.2); BASOPHILS % (AUTO) 0.1 % (0-2); HEMATOCRIT 32.4 % (36.0-47.0); HEMOGLOBIN 10.3 g/dL (12.0-15.5); LYMPHOCYTES % (AUTO) 7.9 % (13-45); MEAN CORPUSCULAR HEMOGLOBIN 28.5 pg (27.0-33.4); MEAN CORPUSCULAR HGB CONC 31.8 g/dL (32.0-36.0); MEAN CORPUSCULAR VOLUME 90 fl (80-97); MONOCYTES % (AUTO) 5.6 % (3-13); RED BLOOD COUNT 3.61 10^6/uL (3.72-5.28); RED CELL DISTRIBUTION WIDTH 19.9 % (11.5-14.0); SEGMENTED NEUTROPHILS % (AUTO) 86.4 % (42-78); TOTAL CELLS COUNTED % (AUTO) 100 %; WHITE BLOOD COUNT 11.8 10^3/uL (4.0-10.5)
[2018-05-22 08:57] LABS: BLOOD UREA NITROGEN 43 mg/dL (7-20); CALCIUM 8.8 mg/dL (8.4-10.2); CARBON DIOXIDE 15 mmol/L (22-30); CHLORIDE 106 mmol/L (98-107); GLUCOSE 89 mg/dL (75-110); POTASSIUM 4.4 mmol/L (3.6-5.0)
[2018-05-22 09:06] LABS: SODIUM 143.4 mmol/L (137-145)
[2018-05-22 09:10] LABS: ANION GAP 22 (5-19)
[2018-05-22 09:31] LABS: PLATELET COUNT 90 10^3/uL (150-450)
[2018-05-22] MEDS: METOLAZONE 5 MG TABLET PO SCH ×2 (12:31→18:03)
[2018-05-22] MEDS: MAGNESIUM OXIDE 400 MG TABLET PO SCH ×3 (12:31→18:04)
[2018-05-22] MEDS: PREDNISONE 10 MG TABLET PO SCH (12:34)
[2018-05-22] MEDS: NYSTATIN TOPICAL POWDER 15 GM TP SCH ×2 (12:34→18:12)
[2018-05-22] MEDS ORDERED: LIDOCAINE 2% INJ-PF (100 MG/5 ML) SYRINGE ONE (13:58)
[2018-05-22] MEDS ORDERED: CYCLOBENZAPRINE HCL 10 MG TABLET PO ONE (14:00)
--- NOTE | 2018-05-22 14:45 | PDOC CONSULTATION ---
Consultation Consult Date: 05/22/18 Consult reason:: need for IV access History of Present Illness Admission Date/PCP: 05/16/18 17:25 TESSA DONNELLY MD History of Present Illness: SIMEON ROSA is a 67 year old female admitted with multiple medica issues including HF, chronic and acure renal failure, septicemia, in need of IV access for the administration of medications and fluids. Past Medical History Cardiac Medical History: Reports: Atrial Fibrillation, Congestive Heart Failure , Hypertension Endocrine Medical History: Reports: Diabetes Mellitus Type 2, Hypothyroidism Malignancy Medical History: Reports: Leukemia - 1983. Musculoskeltal Medical History: Reports: Arthritis Hematology: Reports: Anemia Past Surgical History Past Surgical History: Reports: Hysterectomy, Pacemaker, Other - Vascular access for autologous transplant. Bone Marrow biopsy. Social History Smoking Status: Never Smoker Frequency of Alcohol Use: None Hx Recreational Drug Use: No Drugs: Marijuana Hx Prescription Drug Abuse: No - Advance Directive Resuscitation Status: Full Code Family History Family History: DM, Reviewed & Not Pertinent, Other Parental Family History Reviewed: No Children Family History Reviewed: No Sibling(s) Family History Reviewed.: No Medication/Allergy Home Medications: Acetaminophen [Tylenol 325 mg Tablet] 650 mg PO Q4HP PRN 05/16/18 Amiodarone HCl [Cordarone 200 mg Tablet] 200 mg PO DAILY 05/16/18 Bisacodyl [Dulcolax 10 mg Supp.rect] 10 mg SD DAILYP PRN 05/16/18 Calcitriol [Rocaltrol 0.25 mcg Capsule] 0.5 mcg PO DAILY 05/16/18 Carvedilol [Coreg 3.125 mg Tablet] 3.125 mg PO Q12 05/16/18 Citalopram Hydrobromide [Celexa 20 mg Tablet] 20 mg PO QHS 05/16/18 Docusate Sodium [Colace 100 mg Capsule] 100 mg PO BID 05/16/18 Furosemide [Lasix 40 mg Tablet] 40 mg PO DAILY 05/16/18 Levothyroxine Sodium [Synthroid] 175 mcg PO Q6AM 05/16/18 Magnesium Oxide [Mag-Ox 400 mg Tablet] 400 mg PO BID 05/16/18 Metolazone [Zaroxolyn 2.5 mg Tablet] 2.5 mg PO DAILY 05/16/18 Potassium Chloride [Klor-Con M20] 20 meq PO BID 05/16/18 Prednisone [Deltasone 5 mg Tablet] 5 mg PO BID 05/16/18 Ranitidine HCl [Zantac 150 mg Tablet] 150 mg PO BID 05/16/18 Sennosides/Docusate Sodium [Senna-S Tablet] 2 tab PO BID 05/16/18 Sodium Bicarbonate [Sodium Bicarbonate 650 mg Tablet] 650 mg PO TID 05/16/18 Allergies/Adverse Reactions: shellfish derived Allergy (Verified 05/16/18 12:25) Physical Exam Vital Signs: Temp Pulse Resp BP Pulse Ox 97.5 F 87 17 96/61 L 97 05/22/18 11:38 05/22/18 11:38 05/22/18 11:38 05/22/18 11:38 05/22/18 11:38 Intake & Output 05/21/18 05/22/18 05/23/18 06:59 06:59 06:59 Intake Total 50 518 Output Total 200 Balance 50 318 Weight 104.9 kg 103.1 kg Results Laboratory Results: 05/22/18 07:55 05/22/18 07:55 05/22/18 05/22/18 05/22/18 07:55 07:55 07:55 WBC 11.8 H RBC 3.61 L Hgb 10.3 L Hct 32.4 L MCV 90 MCH 28.5 MCHC 31.8 L RDW 19.9 H Plt Count 90 L Seg Neutrophils % 86.4 H Lymphocytes % 7.9 L Monocytes % 5.6 Eosinophils % 0.0 Basophils % 0.1 Absolute Neutrophils 10.2 H Absolute Lymphocytes 0.9 Absolute Monocytes 0.7 Absolute Eosinophils 0.0 Absolute Basophils 0.0 Sodium 143.4 Potassium 4.4 Chloride 106 Carbon Dioxide 15 L Anion Gap 22 H BUN 43 H Creatinine 3.52 H Est GFR ( Amer) 16 L Est GFR (Non-Af Amer) 13 L Glucose 89 Calcium 8.8 Magnesium 1.9 05/19/18 05/19/18 05/19/18 11:05 17:10 22:51 Creatine Kinase CK-MB (CK-2) Troponin I 0.016 0.015 0.016 05/20/18 05/20/18 05/20/18 03:17 11:30 11:30 Creatine Kinase 21 L CK-MB (CK-2) 0.36 Troponin I 0.023 0.021 05/20/18 05/20/18 17:45 17:45 Creatine Kinase 28 L CK-MB (CK-2) 0.41 Troponin I 0.021 Impressions: Chest X-Ray 05/16/18 13:36 IMPRESSION: 1 Low lung volumes limits detailed. As can best be determined, no acute findings. KUB X-Ray 05/21/18 00:00 IMPRESSION: NO RADIOGRAPHIC EVIDENCE FOR ACUTE ABDOMINAL DISEASE. Assessment & Plan - Diagnosis (1) Need for intravenous access Is this a current diagnosis for this admission?: Yes - Plan Summary Plan Summary: A/ Patient with multiple medical issues Need of IV access for the administration of medications and fluids P/ Plan placement of CVL at bedside. Procedure, risks, benefits explained to the patient, she understands all the above, and decides to proceed.
--- NOTE | 2018-05-22 14:47 | Operative Report ---
Nonrecallable Operative Report DATE OF SURGERY: 05/22/18 PREOPERATIVE DIAGNOSIS: need IV acess POSTOPERATIVE DIAGNOSIS: same OPERATION: Left subclavian vein CVL placement SURGEON: MARY LOU BERMEO ANESTHESIA: Local TISSUE REMOVED OR ALTERED: n/a COMPLICATIONS: none ESTIMATED BLOOD LOSS: < 5 mL INTRAOPERATIVE FINDINGS: as above PROCEDURE: see dictation
[2018-05-22] MEDS ORDERED: LIDOCAINE 1% INJ-PF (10 MG/ML) 30 ML SDV INJ PRN (15:30)
--- NOTE | 2018-05-22 15:33 | RADIOLOGY REPORT (SQ) ---
EXAM DESCRIPTION: CHEST SINGLE VIEW COMPLETED DATE/TIME: 05/22/2018 3:23 pm REASON FOR STUDY: Confirm placement of central line COMPARISON: 05/16/2018. NUMBER OF VIEWS: One view. TECHNIQUE: Single frontal radiographic view of the chest acquired. LIMITATIONS: None. FINDINGS: LUNGS AND PLEURA: No opacities, masses or pneumothorax. No pleural effusion. MEDIASTINUM AND HILAR STRUCTURES: No masses or contour abnormality. HEART AND VASCULATURE: Cardiac enlargement. Vascular congestion. BONES: No acute findings. HARDWARE: A central line has been placed in a left subclavian approach. The catheter crosses the mid line and extends into the right subclavian region. OTHER: No other significant finding. IMPRESSION: 1. NO PNEUMOTHORAX FOLLOWING CENTRAL LINE PLACEMENT. THE CATHETER APPEARS TO PASS FROM THE LEFT BRAC HIOCEPHALIC VEIN INTO THE RIGHT SUBCLAVIAN VEIN. 2. CARDIOMEGALY AND VASCULAR CONGESTION TECHNICAL DOCUMENTATION: JOB ID: [id number] [employer]- All Rights Reserved Reading location - IP/workstation name: [email or web address]
--- NOTE | 2018-05-22 17:10 | PDOC PROGRESS REPORT ---
Subjective Progress Note for:: 05/22/18 Subjective:: The patient is crying out from pain from leg cramps. Reason For Visit: ACUTE ON CHRONIC SYSTOLIC CONGESTIVE HEART FAILURE Physical Exam Vital Signs: Temp Pulse Resp BP Pulse Ox 98.9 F 90 16 95/52 L 65 L 05/22/18 15:16 05/22/18 15:16 05/22/18 15:16 05/22/18 15:16 05/22/18 15:16 Intake & Output 05/21/18 05/22/18 05/23/18 06:59 06:59 06:59 Intake Total 50 518 Output Total 200 Balance 50 318 Weight 104.9 kg 103.1 kg General appearance: PRESENT: mild distress - Leg cramps. Respiratory exam: PRESENT: other - No increased work of breathing.. ABSENT: rales, rhonchi, wheezes Cardiovascular exam: PRESENT: RRR. ABSENT: gallop, rubs, systolic murmur GI/Abdominal exam: PRESENT: normal bowel sounds, soft. ABSENT: hernia, mass, organolmegaly, tenderness Extremities exam: PRESENT: calf tenderness, tenderness, other - leg cramps. ABSENT: clubbing, pedal edema Musculoskeletal exam: PRESENT: normal inspection, tenderness Neurological exam: PRESENT: alert, awake, oriented to person, oriented to place , oriented to time, oriented to situation, CN II-XII grossly intact. ABSENT: motor sensory deficit Skin exam: PRESENT: dry, intact, warm Results Laboratory Results: 05/22/18 07:55 05/22/18 07:55 05/22/18 05/22/18 05/22/18 07:55 07:55 07:55 WBC 11.8 H RBC 3.61 L Hgb 10.3 L Hct 32.4 L MCV 90 MCH 28.5 MCHC 31.8 L RDW 19.9 H Plt Count 90 L Seg Neutrophils % 86.4 H Lymphocytes % 7.9 L Monocytes % 5.6 Eosinophils % 0.0 Basophils % 0.1 Absolute Neutrophils 10.2 H Absolute Lymphocytes 0.9 Absolute Monocytes 0.7 Absolute Eosinophils 0.0 Absolute Basophils 0.0 Sodium 143.4 Potassium 4.4 Chloride 106 Carbon Dioxide 15 L Anion Gap 22 H BUN 43 H Creatinine 3.52 H Est GFR ( Amer) 16 L Est GFR (Non-Af Amer) 13 L Glucose 89 Calcium 8.8 Magnesium 1.9 05/19/18 05/19/18 05/19/18 11:05 17:10 22:51 Creatine Kinase CK-MB (CK-2) Troponin I 0.016 0.015 0.016 05/20/18 05/20/18 05/20/18 03:17 11:30 11:30 Creatine Kinase 21 L CK-MB (CK-2) 0.36 Troponin I 0.023 0.021 05/20/18 05/20/18 17:45 17:45 Creatine Kinase 28 L CK-MB (CK-2) 0.41 Troponin I 0.021 Impressions: KUB X-Ray 05/21/18 00:00 IMPRESSION: NO RADIOGRAPHIC EVIDENCE FOR ACUTE ABDOMINAL DISEASE. Chest X-Ray 05/22/18 00:00 IMPRESSION: 1. NO PNEUMOTHORAX FOLLOWING CENTRAL LINE PLACEMENT. THE CATHETER APPEARS TO PASS FROM THE LEFT BRACHIOCEPHALIC VEIN INTO THE RIGHT SUBCLAVIAN VEIN. 2. CARDIOMEGALY AND VASCULAR CONGESTION Assessment & Plan - Diagnosis (1) Acute on chronic renal failure Qualifiers: Acute renal failure type: unspecified Chronic kidney disease stage: stage 3 (moderate) Qualified Code(s): N17.9 - Acute kidney failure, unspecified; N18.3 - Chronic kidney disease, stage 3 (moderate); N18.3 - Chronic kidney disease, stage 3 (moderate); N18.3 - Chronic kidney disease, stage 3 (moderate) Is this a current diagnosis for this admission?: Yes Plan: Creatinine is increasing. Probably due to CHF. (2) Acute on chronic systolic (congestive) heart failure Is this a current diagnosis for this admission?: Yes Plan: Diruesis. EF 25% on current echo. Quite different from echocardiogram in January of this year. Unable to diurese due to the patient's low blood pressure. (3) CAD (coronary artery disease) Qualifiers: Coronary Disease-Associated Artery/Lesion type: unspecified vessel or lesion type Associated angina: with unspecified angina Is this a current diagnosis for this admission?: Yes Plan: Continue home medications as possible. Unfortunately due to the patient's low blood pressures many of her blood pressure and cardiac medications cannot be continued. (4) CKD (chronic kidney disease) stage 3, GFR 30-59 ml/min Is this a current diagnosis for this admission?: Yes (5) Hypertension Qualifiers: Hypertension type: essential hypertension Qualified Code(s): I10 - Essential (primary) hypertension Is this a current diagnosis for this admission?: Yes (6) Hypothyroidism Qualifiers: Hypothyroidism type: acquired Qualified Code(s): E03.9 - Hypothyroidism, unspecified Is this a current diagnosis for this admission?: Yes (7) Gram-negative bacteremia Is this a current diagnosis for this admission?: Yes (8) Gram-positive cocci bacteremia Is this a current diagnosis for this admission?: Yes (9) Nausea & vomiting Qualifiers: Vomiting Intractability: non-intractable Is this a current diagnosis for this admission?: Yes Plan: Abdominal film does not show obstruction or constipation. No stool sample available to send for C Diff so far. (10) Leg cramps Is this a current diagnosis for this admission?: Yes Plan: Muscl relaxers and warm moist packs. (11) Thrombocytopenia Is this a current diagnosis for this admission?: Yes Plan: Unknown cause. Will monitor. Continue heparin as it has been reported that clots were encountered with the placement of her central line. - Time Time Spent with patient: 25-34 minutes Medications reviewed and adjusted accordingly: Yes
--- NOTE | 2018-05-22 21:26 | OPERATIVE REPORT E ---
Operative Report NAME: SIMEON ROSA : 1950 AGE: 67Y DATE OF SURGERY: 05/22/2018 ROOM: 530 PREOPERATIVE DIAGNOSIS: NEED FOR IV ACCESS FOR ADMINISTRATION OF MEDICATIONS AND FLUIDS. POSTOPERATIVE DIAGNOSIS: NEED FOR IV ACCESS FOR ADMINISTRATION OF MEDICATIONS AND FLUIDS. OPERATION: Left subclavian vein intravenous line. SURGEON: MARY LOU BERMEO M.D. VP OF [employer] MARKETING: None. ESTIMATED BLOOD LOSS: Less than 5 mL. COMPLICATIONS: None. ANESTHESIA: About 10 mL of 1% lidocaine without epinephrine. INDICATIONS AND FINDINGS: A 67-year-old female admitted for history of congestive heart failure, vomiting, acute on chronic heart failure, coronary artery disease, kidney failure, hypertension, hypothyroidism, gram-negative bacteremia, and left sided intravenous poacemaker in need of IV access for administration of medication and fluids. A PICC line placement was attempted, but unsuccessful due to the presence of intravenous thrombi preventing threading of the PICC line. Procedure, risks, benefits and complications explained to the patient. She understands all of the above and decided to proceed. PROCEDURE: The procedure was done at bedside. The patient was placed in supine Trendelenburg position. A towel was placed in between the shoulder blades. The left side of the chest and neck were prepped and draped in the usual sterile fashion. The area just below the midportion of the left clavicle was infiltrated with lidocaine and a 16-gauge needle was used to easily cannulate the left subclavian vein. A guidewire was inserted through the infraclavicular subclavian vein into the superior vena cava. The needle was removed and the insertion point of the needle was enlarged with a tissue dilator, which was removed. The triple-lumen catheter was inserted over the guidewire and advanced to 15 cm. The guidewire was then pulled out. Each port of the triple-lumen catheter was then aspirated and flushed with normal saline without difficulty. The triple-lumen catheter was secured to the skin with 0 sutures. Sterile dressings were applied. The patient tolerated the procedure well. A chest x-ray was obtained to confirm good position of the line. DICTATING PHYSICIAN: MARY LOU BERMEO M.D. [id number] PHY#: [id number] ID: [id number] JOB#: [id number] ACCT: [id number] cc:MARY LOU BERMEO M.D. > [place]
[2018-05-22] MEDS: OXYCODONE-ACETAMINOPHEN 5-325 MG TABLET PO PRN (22:40)
[2018-05-23] MEDS: ALBUMIN HUMAN 12.5 GM/50 ML RTUINJ IV SCH ×3 (02:31→21:33)
[2018-05-23] MEDS: NYSTATIN/DEXAMETH/DIPHEN SUSP 120 ML PO SCH ×5 (02:31→23:39)
[2018-05-23] MEDS: FUROSEMIDE INJ/PF 40 MG/4 ML SDV IV SCH ×2 (02:32→13:00)
[2018-05-23] MEDS: HEPARIN SOD (PORCINE) 5,000 UNIT/ML 1 ML SYRINGE SUBCUT SCH ×3 (06:50→23:27)
[2018-05-23] MEDS: LEVOTHYROXINE SODIUM 0.1 MG TABLET PO SCH (06:51)
[2018-05-23] MEDS: LANSOPRAZOLE 30 MG TAB.RAP.DR PO SCH ×2 (06:52→17:06)
[2018-05-23] MEDS: DEXTROSE 50%-WATER SYRINGE 12.5 GM/25 ML DOSE IV PRN (06:52)
[2018-05-23] MEDS: LEVOTHYROXINE SODIUM 0.075 MG TABLET PO SCH (06:52)
[2018-05-23 08:52] LABS: BLOOD UREA NITROGEN 45 mg/dL (7-20); CHLORIDE 104 mmol/L (98-107); GLUCOSE 50 mg/dL (75-110); POTASSIUM 4.6 mmol/L (3.6-5.0)
[2018-05-23 09:06] LABS: CARBON DIOXIDE 18 mmol/L (22-30); SODIUM 145.2 mmol/L (137-145)
[2018-05-23 09:08] LABS: ANION GAP 23 (5-19)
[2018-05-23] MEDS ORDERED: VANCOMYCIN HCL 1,000 MG in DEXTROSE 5%-WATER 250 ML IV SCH ×3 (12:00)
[2018-05-23] MEDS: METRONIDAZOLE 500 MG/NS RTU 500 MG/100 ML RTUPB IV SCH ×3 (13:00→23:39)
[2018-05-23] MEDS: MAGNESIUM OXIDE 400 MG TABLET PO SCH ×3 (13:01→21:32)
[2018-05-23] MEDS: PREDNISONE 10 MG TABLET PO SCH (13:01)
[2018-05-23] MEDS: MIDODRINE HCL 5 MG TABLET PO SCH ×3 (13:02→21:33)
--- NOTE | 2018-05-23 15:16 | PDOC PROGRESS REPORT ---
Subjective Progress Note for:: 05/23/18 Reason For Visit: Patient seen today on the floor. She is not as coherent as she was when she initially came in. She is however able to answer questions appropriately. She denies any history of chest pain or shortness of breath. No history of any fever or chills. She is growing gram-positive cocci and bacteroids in the blood. She has been started on vancomycin and then Flagyl today. She has a Ny catheter and review of her I&O shows decreasing urine output. Labs and medications were reviewed with the patient and the treating nurse was at the bedside. Physical Exam Vital Signs: Temp Pulse Resp BP Pulse Ox 97.7 F 82 13 108/68 97 05/23/18 11:35 05/23/18 14:00 05/23/18 11:35 05/23/18 11:35 05/23/18 11:35 Intake & Output 05/22/18 05/23/18 05/24/18 06:59 06:59 06:59 Intake Total 518 100 Output Total 200 Balance 318 100 Weight 103.1 kg 101.9 kg General appearance: PRESENT: no acute distress Eye exam: PRESENT: EOMI, PERRLA Neck exam: ABSENT: meningismus, tenderness Respiratory exam: PRESENT: clear to auscultation juancarlos. ABSENT: crackles, rhonchi Cardiovascular exam: PRESENT: RRR, +S1, +S2 GI/Abdominal exam: PRESENT: normal bowel sounds, soft. ABSENT: organomegaly, tenderness Extremities exam: PRESENT: +2 edema Neurological exam: PRESENT: awake, oriented to person Skin exam: ABSENT: erythema, mottled, rash Results Laboratory Results: 05/22/18 07:55 05/23/18 06:41 05/23/18 06:41 Sodium 145.2 H Potassium 4.6 Chloride 104 Carbon Dioxide 18 L Anion Gap 23 H BUN 45 H Creatinine 4.11 H Est GFR ( Amer) 13 L Est GFR (Non-Af Amer) 11 L Glucose 50 L Calcium 9.0 05/19/18 19:48 Blood Blood Culture - Final Bacteroides Fragilis Group No Aerobic Organisms 05/19/18 05/19/18 05/19/18 11:05 17:10 22:51 Creatine Kinase CK-MB (CK-2) Troponin I 0.016 0.015 0.016 08/05/20/18 05/20/18 03:17 11:30 11:30 Creatine Kinase 21 L CK-MB (CK-2) 0.36 Troponin I 0.023 0.021 05/20/18 05/20/18 17:45 17:45 Creatine Kinase 28 L CK-MB (CK-2) 0.41 Troponin I 0.021 Impressions: KUB X-Ray 05/21/18 00:00 IMPRESSION: NO RADIOGRAPHIC EVIDENCE FOR ACUTE ABDOMINAL DISEASE. Chest X-Ray 05/22/18 00:00 IMPRESSION: 1. NO PNEUMOTHORAX FOLLOWING CENTRAL LINE PLACEMENT. THE CATHETER APPEARS TO PASS FROM THE LEFT BRACHIOCEPHALIC VEIN INTO THE RIGHT SUBCLAVIAN VEIN. 2. CARDIOMEGALY AND VASCULAR CONGESTION Assessment & Plan - Diagnosis (1) Acute on chronic systolic (congestive) heart failure Is this a current diagnosis for this admission?: Yes Plan: She looks asymptomatic in bed as long as she is not exerting.However given her drop in blood pressure in the face of bacteremia, its best that she is transferred to the ICU and begun on Levophed. Discussed with the treating hospitalist. If her urine output continues to drop then she might even require dialysis. That decision to that it will be taken in the next couple of days. (2) Acute on chronic renal failure Qualifiers: Acute renal failure type: unspecified Chronic kidney disease stage: stage 3 (moderate) Qualified Code(s): N17.9 - Acute kidney failure, unspecified; N18.3 - Chronic kidney disease, stage 3 (moderate); N18.3 - Chronic kidney disease, stage 3 (moderate); N18.3 - Chronic kidney disease, stage 3 (moderate) Is this a current diagnosis for this admission?: Yes (3) CKD (chronic kidney disease) stage 3, GFR 30-59 ml/min Is this a current diagnosis for this admission?: Yes Plan: Renal numbers are getting worse with dropping urine output. See how she responds to starting him on Levophed in the ICU and adjusting her diuretics. Discussed with the treating hospitalist. She might need dialysis if she gets any worse. (4) Hypertension Qualifiers: Hypertension type: essential hypertension Qualified Code(s): I10 - Essential (primary) hypertension Is this a current diagnosis for this admission?: Yes Plan: Currently hypotensive. She is off all antihypertensives. Discussions as mentioned earlier. (5) Morbid obesity Is this a current diagnosis for this admission?: Yes Plan: She would need to work on this once she is discharged. (6) Type 2 diabetes mellitus Is this a current diagnosis for this admission?: Yes Plan: Needs tight diabetic control for obvious reasons. (7) Hypotension Plan: Looks like she is septic and she is bacteremic. She is on vancomycin and Flagyl. She needs to be transferred to the ICU for initiation of Levophed. (8) Polymyalgia rheumatica Plan: She is on prednisone. (9) Hypothyroidism Qualifiers: Hypothyroidism type: acquired Qualified Code(s): E03.9 - Hypothyroidism, unspecified Is this a current diagnosis for this admission?: Yes
[2018-05-23] MEDS: NYSTATIN TOPICAL POWDER 15 GM TP SCH ×2 (16:56→21:33)
[2018-05-23] MEDS: METOLAZONE 5 MG TABLET PO SCH ×2 (17:06→21:32)
[2018-05-23] MEDS: FUROSEMIDE INJ/PF 100 MG/10 ML SDV IV SCH (21:33)
[2018-05-23] MEDS: DEXTROSE 5%-WATER 250 ML with NOREPINEPHRINE BITARTRATE 4 MG IV PRN ×2 (23:29)
[2018-05-24] MEDS: FUROSEMIDE INJ/PF 100 MG/10 ML SDV IV SCH ×3 (02:20→18:59)
[2018-05-24] MEDS: ALBUMIN HUMAN 12.5 GM/50 ML RTUINJ IV SCH ×2 (02:21→11:17)
[2018-05-24 04:29] LABS: ANION GAP 19 (5-19); BLOOD UREA NITROGEN 46 mg/dL (7-20); CALCIUM 9.2 mg/dL (8.4-10.2); CARBON DIOXIDE 18 mmol/L (22-30); CHLORIDE 105 mmol/L (98-107); GLUCOSE 73 mg/dL (75-110); POTASSIUM 4.7 mmol/L (3.6-5.0); SODIUM 141.7 mmol/L (137-145)
[2018-05-24] MEDS: METRONIDAZOLE 500 MG/NS RTU 500 MG/100 ML RTUPB IV SCH (05:54)
[2018-05-24] MEDS: HEPARIN SOD (PORCINE) 5,000 UNIT/ML 1 ML SYRINGE SUBCUT SCH ×3 (05:55→22:51)
[2018-05-24] MEDS: LANSOPRAZOLE 30 MG TAB.RAP.DR PO SCH ×2 (05:55→18:59)
[2018-05-24] MEDS: LEVOTHYROXINE SODIUM 0.1 MG TABLET PO SCH (05:55)
[2018-05-24] MEDS: LEVOTHYROXINE SODIUM 0.075 MG TABLET PO SCH (05:55)
[2018-05-24] MEDS: NYSTATIN/DEXAMETH/DIPHEN SUSP 120 ML PO SCH ×3 (05:56→19:00)
--- NOTE | 2018-05-24 06:55 | PDOC PROGRESS REPORT ---
Subjective Progress Note for:: 05/23/18 Subjective:: The patient is without new complaints. Reason For Visit: ACUTE ON CHRONIC SYSTOLIC CONGESTIVE HEART FAILURE Physical Exam Vital Signs: Temp Pulse Resp BP Pulse Ox 98.2 F 88 22 H 104/74 97 05/24/18 06:00 05/23/18 22:27 05/24/18 06:00 05/24/18 05:55 05/24/18 06:00 Intake & Output 05/22/18 05/23/18 05/24/18 06:59 06:59 06:59 Intake Total 518 100 350 Output Total 200 50 Balance 318 100 300 Weight 103.1 kg 101.9 kg 97.7 kg General appearance: PRESENT: no acute distress, morbidly obese Respiratory exam: PRESENT: other - No increased work of breathing.. ABSENT: rales, rhonchi, wheezes Cardiovascular exam: PRESENT: RRR. ABSENT: gallop, rubs, systolic murmur GI/Abdominal exam: PRESENT: normal bowel sounds, soft. ABSENT: hernia, mass, organolmegaly, tenderness Extremities exam: PRESENT: pedal edema. ABSENT: clubbing, joint swelling, tenderness Musculoskeletal exam: PRESENT: normal inspection. ABSENT: deformity, dislocation, tenderness Neurological exam: PRESENT: alert, awake, oriented to person, oriented to place , oriented to time, oriented to situation Psychiatric exam: PRESENT: appropriate affect, normal mood Skin exam: PRESENT: dry, intact, warm Results Laboratory Results: 05/22/18 07:55 05/24/18 03:50 05/23/18 05/24/18 06:41 03:50 Sodium 145.2 H 141.7 Potassium 4.6 4.7 Chloride 104 105 Carbon Dioxide 18 L 18 L Anion Gap 23 H 19 BUN 45 H 46 H Creatinine 4.11 H 4.13 H Est GFR ( Amer) 13 L 13 L Est GFR (Non-Af Amer) 11 L 11 L Glucose 50 L 73 L Calcium 9.0 9.2 05/19/18 19:14 Blood Blood Culture - Final Staphylococcus Epidermidis 05/19/18 05/19/18 05/19/18 11:05 17:10 22:51 Creatine Kinase CK-MB (CK-2) Troponin I 0.016 0.015 0.016 05/20/18 05/20/18 05/20/18 03:17 11:30 11:30 Creatine Kinase 21 L CK-MB (CK-2) 0.36 Troponin I 0.023 0.021 05/20/18 05/20/18 17:45 17:45 Creatine Kinase 28 L CK-MB (CK-2) 0.41 Troponin I 0.021 Impressions: KUB X-Ray 05/21/18 00:00 IMPRESSION: NO RADIOGRAPHIC EVIDENCE FOR ACUTE ABDOMINAL DISEASE. Chest X-Ray 05/22/18 00:00 IMPRESSION: 1. NO PNEUMOTHORAX FOLLOWING CENTRAL LINE PLACEMENT. THE CATHETER APPEARS TO PASS FROM THE LEFT BRACHIOCEPHALIC VEIN INTO THE RIGHT SUBCLAVIAN VEIN. 2. CARDIOMEGALY AND VASCULAR CONGESTION Assessment & Plan - Diagnosis (1) Acute on chronic renal failure Qualifiers: Acute renal failure type: unspecified Chronic kidney disease stage: stage 3 (moderate) Qualified Code(s): N17.9 - Acute kidney failure, unspecified; N18.3 - Chronic kidney disease, stage 3 (moderate); N18.3 - Chronic kidney disease, stage 3 (moderate); N18.3 - Chronic kidney disease, stage 3 (moderate) Is this a current diagnosis for this admission?: Yes (2) Acute on chronic systolic (congestive) heart failure Is this a current diagnosis for this admission?: Yes (3) CAD (coronary artery disease) Qualifiers: Coronary Disease-Associated Artery/Lesion type: unspecified vessel or lesion type Associated angina: with unspecified angina Is this a current diagnosis for this admission?: Yes (4) CKD (chronic kidney disease) stage 3, GFR 30-59 ml/min Is this a current diagnosis for this admission?: Yes (5) Hypothyroidism Qualifiers: Hypothyroidism type: acquired Qualified Code(s): E03.9 - Hypothyroidism, unspecified Is this a current diagnosis for this admission?: Yes (6) Gram-negative bacteremia Is this a current diagnosis for this admission?: Yes Plan: Bacillus fragilis. Stopped Zosyn and started Flagyl. (7) Gram-positive cocci bacteremia Is this a current diagnosis for this admission?: Yes Plan: Staph epi. Stop Vancomycin. Likely a contaminant. (8) Nausea & vomiting Qualifiers: Vomiting Intractability: non-intractable Is this a current diagnosis for this admission?: Yes (9) Leg cramps Is this a current diagnosis for this admission?: Yes (10) Thrombocytopenia Is this a current diagnosis for this admission?: Yes (11) Hypotension Is this a current diagnosis for this admission?: Yes Plan: likely due to sepsis secondary to B. fragilis bacteremia. I have discussed this with Dr. Rico. The patient will be transferred to the ICU to receive IV Levophed. The hope is that this will increase perfusion to the patient's kidneys sufficiently to allow her to avoid dialysis. I have discussed this with the patient's family. - Time Time Spent with patient: 35 or more minutes
[2018-05-24] MEDS: DEXTROSE 50%-WATER SYRINGE 12.5 GM/25 ML DOSE IV PRN (08:49)
[2018-05-24] MEDS: MAGNESIUM OXIDE 400 MG TABLET PO SCH ×3 (11:17→18:59)
[2018-05-24] MEDS: MIDODRINE HCL 5 MG TABLET PO SCH ×3 (11:17→18:59)
[2018-05-24] MEDS: NYSTATIN TOPICAL POWDER 15 GM TP SCH ×2 (11:18→19:00)
[2018-05-24] MEDS: METOLAZONE 5 MG TABLET PO SCH ×2 (11:18→19:02)
[2018-05-24] MEDS: PREDNISONE 10 MG TABLET PO SCH (11:18)
[2018-05-24] MEDS: DEXTROSE 5%-WATER 250 ML with NOREPINEPHRINE BITARTRATE 4 MG IV PRN ×4 (11:59→22:48)
--- NOTE | 2018-05-24 13:42 | Operative Report ---
Operative Report DATE OF SURGERY: 05/22/18 PREOPERATIVE DIAGNOSIS: 1. End-stage renal disease requiring hemodialysis. 2. Multiple comorbidities. POSTOPERATIVE DIAGNOSIS: 1. End-stage renal disease requiring hemodialysis. 2. Multiple comorbidities. OPERATION: 1. Ultrasound evaluation of the right femoral vein. 2. Insertion of temporary hemodialysis catheter via real time access in the right femoral vein. SURGEON: LUCAS ERICKSON PULP BEATER: None. ANESTHESIA: Local TISSUE REMOVED OR ALTERED: n/a COMPLICATIONS: None. ESTIMATED BLOOD LOSS: < 5 mL INTRAOPERATIVE FINDINGS: Of very deeply placed right femoral vein in this morbidly obese patient. Satisfactory and safe axis obtained on the real-time ultrasound guidance. Appropriate position with easy egress of blood and ingress of heparinized solution through all 3 ports. PROCEDURE: After obtaining informed consent, the patient was positioned supine at bedside. The[ left groin] and adjacent areas were prepared with chlorhexidine and draped out with sterile linen. After the universal timeout the procedure commenced. A steriley sheathed ultrasound probe was used to evaluate the [right femoral l vein]. Local anesthesia was infiltrated adjacent to the probe. Access into the right femoral was accomplished using a micropuncture needle followed, by micropuncture wire and then with a micropuncture catheter. This was followed by introduction of a 0.035 guidewire, the skin opening was enlarged slightly, serially larger dilators were now placed followed by introduction of a triaysis catheter. All of these transitions were smooth. Each lumen was aspirated of blood and irrigated with heparinized solution. The catheter was now sutured to the skin using 3-0 nylon. A Bio A patch was now applied, followed by sterile dressings. Caps were placed on the end of the each of the lumens. The procedure concluded. Copies dictated operative report to Dr. Lucas Rico MD.
[2018-05-24] MEDS ORDERED: DEXTROSE 10%-WATER 1,000 ML IV PRN (14:04)
[2018-05-24] MEDS ORDERED: FENTANYL 25 MCG/HR PATCH.TD72 TD SCH (15:00)
--- NOTE | 2018-05-24 15:37 | PDOC PROGRESS REPORT ---
Subjective Progress Note for:: 05/24/18 Subjective:: This is 67 years old black female patient with multiple comorbidities admitted with a diagnosis of acute on chronic systolic congestive heart failure exacerbation. Patient was tried with p.o. diuretics at her primary dialysis nurse office since she failed to respond to that admitted for IV diuretics. Currently patient is not able to produce urine and her dialysis nurse Dr. Rico decided to temporarily dialyze her and she is status post insertion of hemodialysis catheter. During her stay her blood culture grew gram-positive cocci in cluster which she has been started on vancomycin initially but the final report of the blood culture reported as staph epidermidis which is a contaminant so the vancomycin discontinued. Her positive blood culture grew Bacteroides fragilis for which she has been on Flagyl. I seen and examined the patient while she is in good she looks weak but she responds appropriately. Reason For Visit: ACUTE ON CHRONIC SYSTOLIC CONGESTIVE HEART FAILURE Physical Exam Vital Signs: Temp Pulse Resp BP Pulse Ox 97.7 F 90 27 H 107/87 H 97 05/24/18 12:00 05/24/18 12:00 05/24/18 12:00 05/24/18 12:00 05/24/18 12:00 Intake & Output 05/23/18 05/24/18 05/25/18 06:59 06:59 06:59 Intake Total 100 400 234 Output Total 50 7 Balance 100 350 227 Weight 101.9 kg 97.7 kg General appearance: PRESENT: no acute distress Head exam: PRESENT: atraumatic Eye exam: PRESENT: conjunctiva pink Mouth exam: PRESENT: dry mucosa Respiratory exam: PRESENT: decreased breath sounds Cardiovascular exam: PRESENT: RRR. ABSENT: diastolic murmur, rubs, systolic murmur Neurological exam: PRESENT: alert Skin exam: PRESENT: skin tears - On bilateral flanks and under her breast Results Laboratory Results: 05/22/18 07:55 05/24/18 03:50 05/24/18 03:50 Sodium 141.7 Potassium 4.7 Chloride 105 Carbon Dioxide 18 L Anion Gap 19 BUN 46 H Creatinine 4.13 H Est GFR ( Amer) 13 L Est GFR (Non-Af Amer) 11 L Glucose 73 L Calcium 9.2 05/19/18 19:14 Blood Blood Culture - Final Staphylococcus Epidermidis 05/19/18 05/19/18 05/19/18 11:05 17:10 22:51 Creatine Kinase CK-MB (CK-2) Troponin I 0.016 0.015 0.016 05/20/18 05/20/18 05/20/18 03:17 11:30 11:30 Creatine Kinase 21 L CK-MB (CK-2) 0.36 Troponin I 0.023 0.021 05/20/18 05/20/18 17:45 17:45 Creatine Kinase 28 L CK-MB (CK-2) 0.41 Troponin I 0.021 Impressions: KUB X-Ray 05/21/18 00:00 IMPRESSION: NO RADIOGRAPHIC EVIDENCE FOR ACUTE ABDOMINAL DISEASE. Chest X-Ray 05/22/18 00:00 IMPRESSION: 1. NO PNEUMOTHORAX FOLLOWING CENTRAL LINE PLACEMENT. THE CATHETER APPEARS TO PASS FROM THE LEFT BRACHIOCEPHALIC VEIN INTO THE RIGHT SUBCLAVIAN VEIN. 2. CARDIOMEGALY AND VASCULAR CONGESTION Assessment & Plan - Diagnosis (1) Gram-negative bacteremia Is this a current diagnosis for this admission?: Yes Plan: Continue Flagyl. (2) Acute on chronic systolic (congestive) heart failure Is this a current diagnosis for this admission?: Yes Plan: We will start her on IV Lasix 40 mg IV every 12 hours (3) Type 2 diabetes mellitus Is this a current diagnosis for this admission?: Yes Plan: Sliding-scale, continue home medication (4) Chronic kidney disease, stage IV (severe) Is this a current diagnosis for this admission?: Yes Plan: Patient scheduled for hemodialysis (5) Hypertension Qualifiers: Hypertension type: essential hypertension Qualified Code(s): I10 - Essential (primary) hypertension Is this a current diagnosis for this admission?: Yes Plan: The patient is hypotensive (6) Morbid obesity Is this a current diagnosis for this admission?: Yes
--- NOTE | 2018-05-24 15:53 | PDOC PROGRESS REPORT ---
Subjective Progress Note for:: 05/24/18 Reason For Visit: Patient seen in the ICU today.She has unfortunately continue to progressively deteriorate over the last couple of days. She has become oliguric in spite of maximizing her diuretics. She is also become quite hypotensive secondary to septic shock and was transferred to the ICU yesterday and begun on Levophed. Even though she is awake and responsive to your questions and answer more or less in Monosyllables, she is disoriented and confused. She is unable to recognize me or remember my name, unable to know where she is and what month this is. Unfortunately urine output has become oliguric as mentioned earlier and she has become anasarcous and is slowly developing dyspnea even though she is currently off any oxygen.Fortunately she has failed to respond to high doses of intravenous diuretics. She is growing Bacteroides in the blood and her staph epidermidis apparently was a contaminant. She is got multiple skin breaks including decubitus ulcers in her buttocks and is possibly would be a focus.Discussed condition and status with the treating nurse Anali. Labs and medications were reviewed. Discussed the case with her sister. Physical Exam Vital Signs: Temp Pulse Resp BP Pulse Ox 97.7 F 90 27 H 107/87 H 97 05/24/18 12:00 05/24/18 12:00 05/24/18 12:00 05/24/18 12:00 05/24/18 12:00 Intake & Output 05/23/18 05/24/18 05/25/18 06:59 06:59 06:59 Intake Total 100 400 234 Output Total 50 7 Balance 100 350 227 Weight 101.9 kg 97.7 kg General appearance: PRESENT: no acute distress Mouth exam: PRESENT: moist, neck supple Neck exam: ABSENT: lymphadenopathy, meningismus, tenderness, thyromegaly, tracheal deviation Respiratory exam: PRESENT: clear to auscultation juancarlos, crackles. ABSENT: rhonchi Cardiovascular exam: PRESENT: RRR, +S1, +S2 GI/Abdominal exam: PRESENT: normal bowel sounds, soft. ABSENT: organomegaly, tenderness Extremities exam: PRESENT: +2 edema Neurological exam: PRESENT: altered, awake. ABSENT: oriented to person, oriented to place, oriented to time Skin exam: PRESENT: mottled, skin tears Results Laboratory Results: 05/22/18 07:55 05/24/18 03:50 05/24/18 03:50 Sodium 141.7 Potassium 4.7 Chloride 105 Carbon Dioxide 18 L Anion Gap 19 BUN 46 H Creatinine 4.13 H Est GFR ( Amer) 13 L Est GFR (Non-Af Amer) 11 L Glucose 73 L Calcium 9.2 05/19/18 19:14 Blood Blood Culture - Final Staphylococcus Epidermidis 05/19/18 05/19/18 05/19/18 11:05 17:10 22:51 Creatine Kinase CK-MB (CK-2) Troponin I 0.016 0.015 0.016 05/20/18 05/20/18 05/20/18 03:17 11:30 11:30 Creatine Kinase 21 L CK-MB (CK-2) 0.36 Troponin I 0.023 0.021 05/20/18 05/20/18 17:45 17:45 Creatine Kinase 28 L CK-MB (CK-2) 0.41 Troponin I 0.021 Impressions: KUB X-Ray 05/21/18 00:00 IMPRESSION: NO RADIOGRAPHIC EVIDENCE FOR ACUTE ABDOMINAL DISEASE. Chest X-Ray 05/22/18 00:00 IMPRESSION: 1. NO PNEUMOTHORAX FOLLOWING CENTRAL LINE PLACEMENT. THE CATHETER APPEARS TO PASS FROM THE LEFT BRACHIOCEPHALIC VEIN INTO THE RIGHT SUBCLAVIAN VEIN. 2. CARDIOMEGALY AND VASCULAR CONGESTION Assessment & Plan - Diagnosis (1) Acute on chronic systolic (congestive) heart failure Is this a current diagnosis for this admission?: Yes Plan: She is getting into worsening congestive heart failure in the setting of oliguric renal failure. She has pre-existing heart disease. Her current septic shock has made things a whole lot worse. She has failed to respond to intravenous diuretics.Plan to initiate hemodialysis. Discuss case with the treating nurse Anali. Get Dr. Victoriano Rico to place a temporary dialysis catheter and start dialysis tomorrow. The plans were outlined to her but she is confused. Did discuss with the sister who is agreed to consent.Patient has been on transient hemodialysis in the past and has had complete renal recovery.Currently she is quite critical.Current status was explained to her sister at length. (2) Acute on chronic renal failure Qualifiers: Acute renal failure type: unspecified Chronic kidney disease stage: stage 3 (moderate) Qualified Code(s): N17.9 - Acute kidney failure, unspecified; N18.3 - Chronic kidney disease, stage 3 (moderate); N18.3 - Chronic kidney disease, stage 3 (moderate); N18.3 - Chronic kidney disease, stage 3 (moderate) Is this a current diagnosis for this admission?: Yes Plan: Unfortunately continued to get worse and has become oliguric. She is in early congestive heart failure in the setting of septic shock. Plan to consider temporary dialysis catheter and initiate dialysis in the morning. Orders have been outlined with to the treating nurse Anali. We will get a dialysis catheter today. Orders have been placed. (3) CKD (chronic kidney disease) stage 3, GFR 30-59 ml/min Is this a current diagnosis for this admission?: Yes Plan: Renal numbers are getting worse with dropping urine output. Poor response to the initiation of pressor agents.Plan to initiate renal replacements (4) Hypertension Qualifiers: Hypertension type: essential hypertension Qualified Code(s): I10 - Essential (primary) hypertension Is this a current diagnosis for this admission?: Yes Plan: Currently in septic shock and hypotensive on Levophed. (5) Morbid obesity Is this a current diagnosis for this admission?: Yes (6) Type 2 diabetes mellitus Is this a current diagnosis for this admission?: Yes Plan: Currently she is having hypoglycemia in spite of not being on any antidiabetic agents. She is not eating or drinking. Part of septic shock and possibly poor liver functions from possible congestive hepatopathy. Initiate D10 and titrated to keep blood sugars between 100- 130. Discussed with treating nurse Anali. (7) Hypotension Is this a current diagnosis for this admission?: Yes Plan: Secondary to septic shock on Levophed. Blood pressures are being maintained better. (8) Polymyalgia rheumatica Plan: She is on prednisone. (9) Hypothyroidism Qualifiers: Hypothyroidism type: acquired Qualified Code(s): E03.9 - Hypothyroidism, unspecified Is this a current diagnosis for this admission?: Yes Plan: On replacements.
[2018-05-24] MEDS: METRONIDAZOLE 500 MG/NS RTU 250 MG in CONTAINER,EMPTY 1 EACH IV SCH ×2 (16:10→22:49)
[2018-05-24] MEDS: DEXTROSE 50%-WATER 25 GM/50 ML DISP.SYRIN IV SCH (22:48)
[2018-05-25] MEDS: NYSTATIN/DEXAMETH/DIPHEN SUSP 120 ML PO SCH ×3 (00:16→12:44)
[2018-05-25] MEDS: DEXTROSE 50%-WATER 25 GM/50 ML DISP.SYRIN IV SCH ×3 (03:26→12:42)
[2018-05-25] MEDS: FUROSEMIDE INJ/PF 100 MG/10 ML SDV IV SCH ×2 (03:26→12:43)
[2018-05-25] MEDS: METRONIDAZOLE 500 MG/NS RTU 250 MG in CONTAINER,EMPTY 1 EACH IV SCH (05:42)
[2018-05-25] MEDS: DEXTROSE 5%-WATER 250 ML with NOREPINEPHRINE BITARTRATE 4 MG IV PRN ×2 (05:42)
[2018-05-25] MEDS: LEVOTHYROXINE SODIUM 0.1 MG TABLET PO SCH (05:42)
[2018-05-25] MEDS: LANSOPRAZOLE 30 MG TAB.RAP.DR PO SCH (05:43)
[2018-05-25] MEDS: LEVOTHYROXINE SODIUM 0.075 MG TABLET PO SCH (05:43)
[2018-05-25 05:46] LABS: HEMATOCRIT 30.4 % (36.0-47.0); HEMOGLOBIN 9.6 g/dL (12.0-15.5); MEAN CORPUSCULAR HEMOGLOBIN 29.1 pg (27.0-33.4); MEAN CORPUSCULAR HGB CONC 31.8 g/dL (32.0-36.0); MEAN CORPUSCULAR VOLUME 92 fl (80-97); RED BLOOD COUNT 3.31 10^6/uL (3.72-5.28); RED CELL DISTRIBUTION WIDTH 20.4 % (11.5-14.0); WHITE BLOOD COUNT 12.9 10^3/uL (4.0-10.5)
[2018-05-25 06:04] LABS: BLOOD UREA NITROGEN 47 mg/dL (7-20); CALCIUM 8.7 mg/dL (8.4-10.2); GLUCOSE 235 mg/dL (75-110); POTASSIUM 4.4 mmol/L (3.6-5.0)
[2018-05-25] MEDS: HEPARIN SOD (PORCINE) 5,000 UNIT/ML 1 ML SYRINGE SUBCUT SCH (06:07)
[2018-05-25 06:09] LABS: CARBON DIOXIDE 13 mmol/L (22-30); CHLORIDE 102 mmol/L (98-107); SODIUM 142.1 mmol/L (137-145)
[2018-05-25 06:12] LABS: PLATELET COUNT 71 10^3/uL (150-450)
[2018-05-25 06:13] LABS: ANION GAP 27 (5-19)
[2018-05-25 06:14] LABS: ABSOLUTE LYMPHOCYTES# (MANUAL) 0.9 10^3/uL (0.5-4.7); ABSOLUTE MONOCYTES # (MANUAL) 0.5 10^3/uL (0.1-1.4); ABSOLUTE NEUTROPHILS# (MANUAL) 11.5 10^3/uL (1.7-8.2); BAND NEUTROPHILS % (MANUAL) 1 % (3-5); BASOPHILS % (MANUAL) 0 % (0-2); EOSINOPHILS % (MANUAL) 0 % (0-6); LYMPHOCYTES % (MANUAL) 7 % (13-45); MONOCYTES % (MANUAL) 4 % (3-13); NUCLEATED RED BLOOD CELLS 2 /100 WBC (0); SEGMENTED NEUTROPHILS % (MAN) 88 % (42-78); TOTAL CELLS COUNTED 100
[2018-05-25 06:16] LABS: ANISOCYTOSIS 2+; BURR CELLS SLIGHT; OVALOCYTES SLIGHT; PLATELET COMMENT DECREASED; POIKILOCYTOSIS SLIGHT; SCHISTOCYTES SLIGHT; TEAR DROP CELLS SLIGHT
[2018-05-25] MEDS ORDERED: TUBERCULIN,PURIF.PROT.DERIV. 5 TU/0.1 ML TEST 1 ML VIAL ID ONE (07:00)
[2018-05-25] MEDS ORDERED: HEPARIN SOD (PORCINE) 1,000 UNIT/ML 10 ML VIAL IV PRN (11:14)
[2018-05-25] MEDS: PREDNISONE 10 MG TABLET PO SCH (12:42)
[2018-05-25] MEDS: MIDODRINE HCL 5 MG TABLET PO SCH (12:43)
[2018-05-25] MEDS: MAGNESIUM OXIDE 400 MG TABLET PO SCH (12:43)
[2018-05-25] MEDS: NYSTATIN TOPICAL POWDER 15 GM TP SCH (12:43)
[2018-05-25] MEDS: METOLAZONE 5 MG TABLET PO SCH (12:44)
--- NOTE | 2018-05-25 13:31 | PDOC TRANSFER SUMMARY ---
General Admission Date/PCP: 05/16/18 17:25 TESSA DONNELLY MD Resuscitation Status: Full Code - Transfer Diagnosis (1) Gram-negative bacteremia Is this a current diagnosis for this admission?: Yes (2) Acute on chronic systolic (congestive) heart failure Is this a current diagnosis for this admission?: Yes (3) Type 2 diabetes mellitus Is this a current diagnosis for this admission?: Yes (4) Chronic kidney disease, stage IV (severe) Is this a current diagnosis for this admission?: Yes (5) Hypertension Is this a current diagnosis for this admission?: Yes (6) Morbid obesity Is this a current diagnosis for this admission?: Yes - Transfer Medications Home Medications: Acetaminophen [Tylenol 325 mg Tablet] 650 mg PO Q4HP PRN 05/16/18 Amiodarone HCl [Cordarone 200 mg Tablet] 200 mg PO DAILY 05/16/18 Bisacodyl [Dulcolax 10 mg Supp.rect] 10 mg ID DAILYP PRN 05/16/18 Calcitriol [Rocaltrol 0.25 mcg Capsule] 0.5 mcg PO DAILY 05/16/18 Carvedilol [Coreg 3.125 mg Tablet] 3.125 mg PO Q12 05/16/18 Citalopram Hydrobromide [Celexa 20 mg Tablet] 20 mg PO QHS 05/16/18 Docusate Sodium [Colace 100 mg Capsule] 100 mg PO BID 05/16/18 Furosemide [Lasix 40 mg Tablet] 40 mg PO DAILY 05/16/18 Levothyroxine Sodium [Synthroid] 175 mcg PO Q6AM 05/16/18 Magnesium Oxide [Mag-Ox 400 mg Tablet] 400 mg PO BID 05/16/18 Metolazone [Zaroxolyn 2.5 mg Tablet] 2.5 mg PO DAILY 05/16/18 Potassium Chloride [Klor-Con M20] 20 meq PO BID 05/16/18 Prednisone [Deltasone 5 mg Tablet] 5 mg PO BID 05/16/18 Ranitidine HCl [Zantac 150 mg Tablet] 150 mg PO BID 05/16/18 Sennosides/Docusate Sodium [Senna-S Tablet] 2 tab PO BID 05/16/18 Sodium Bicarbonate [Sodium Bicarbonate 650 mg Tablet] 650 mg PO TID 05/16/18 Transfer Medications: Current Medications Al Hydrox/Mg Hydrox/Simethicone (Maalox Plus Susp 30 Udcup) 30 ml PO Q3HP PRN PRN Reason: HEARTBURN Stop: 06/18/18 16:27 Albuterol/Ipratropium (Duoneb 3 Ml Ampul) 3 ml NEB RTQ8HP PRN PRN Reason: SHORTNESS OF BREATH Stop: 06/15/18 16:39 Dextrose (Dextrose Inj 50% Syringe (25 Gm/50 Ml)) 12.5 gm IV PRN PRN; Protocol PRN Reason: FOR BG 50-69 IN ALERT PATIENT Stop: 06/15/18 22:31 Last Admin: 05/24/18 08:49 Dose: 12.5 gm Dextrose (Dextrose Inj 50% Syringe (25 Gm/50 Ml)) 25 gm IV PRN PRN PRN Reason: Protocol Stop: 06/15/18 22:31 Last Admin: 05/22/18 06:33 Dose: 25 gm Dextrose (Dextrose Inj 50% Syringe (25 Gm/50 Ml)) 25 gm IV Q4 FERMIN Stop: 06/23/18 21:59 Last Admin: 05/25/18 12:42 Dose: Not Given Diphenhydramine/Hydrocorti/Nystatin (Magic Mouthwash (Omh Formula) Susp) 5 ml PO Q6 FERMIN Stop: 06/19/18 19:59 Last Admin: 05/25/18 12:44 Dose: Not Given Fentanyl (Duragesic 25 Mcg/Hr Transdermal Patch) 1 each TD Q3DAYS FERMIN Stop: 05/31/18 14:59 Last Admin: 05/24/18 16:08 Dose: 1 each Furosemide (Lasix Inj/Pf 100 Mg/10 Ml Sdv) 80 mg IV Q8A FERMIN Stop: 06/22/18 17:59 Last Admin: 05/25/18 12:43 Dose: Not Given Glucagon (Glucagen Inj 1 Mg Vial) 1 mg IM PRN PRN; Protocol PRN Reason: EVALUATE FOR BG < 70 Stop: 06/15/18 22:31 Glucose (Glutose 40% Gel 15 Gm Tube) 15 gm PO PRN PRN; Protocol PRN Reason: FOR BG 50-69 IN ALERT PATIENT Stop: 06/15/18 22:31 Glucose (Glutose 40% Gel 15 Gm Tube) 30 gm PO PRN PRN; Protocol PRN Reason: FOR BG < 50 IN ALERT PATIENT Stop: 06/15/18 22:31 Heparin Sodium (Porcine) (Heparin Inj 5,000 Units/Ml 1 Ml Syringe) 5,000 unit SUBCUT Q8 [facility] Stop: 06/15/18 21:59 Last Admin: 05/25/18 06:07 Dose: Not Given Heparin Sodium (Porcine) (Heparin Flush 10 Unit/Ml 5 Ml Disp.Syrg) 30 unit IV Q8 [facility] Stop: 06/21/18 21:59 Last Admin: 05/25/18 05:43 Dose: Not Given Heparin Sodium (Porcine) (Heparin Flush 10 Unit/Ml 5 Ml Disp.Syrg) 30 unit IV .AFTER EACH USE PRN PRN Reason: AFTER EACH INTERMITTENT USE Stop: 06/21/18 17:23 Heparin Sodium (Porcine) (Heparin Inj 1,000 Unit/Ml 10 Ml Vial) 3,600 unit IV .DIALYSIS PRN PRN Reason: THIS MED IS NOT "PRN" Stop: 05/25/18 23:59 Last Admin: 05/25/18 11:50 Dose: 3,600 units Norepinephrine Bitartrate 4 mg (/ Dextrose) 250 mls @ 0 mls/hr IV CONTINUOUS PRN; Protocol; Titrate PRN Reason: THIS MED IS NOT "PRN" Stop: 06/22/18 14:44 Last Titration: 05/25/18 13:07 Dose: 5 mcg/min, 18.75 mls/hr Metronidazole 250 mg/ (Miscellaneous Information) 50 mls @ 100 mls/hr IV Q8 [facility] Stop: 05/31/18 13:59 Last Infusion: 05/25/18 06:42 Dose: Infused Dextrose (D10w 1000 Ml Iv Soln) 1,000 mls @ 50 mls/hr IV CONTINUOUS PRN PRN Reason: THIS MED IS NOT "PRN" Stop: 06/23/18 14:03 Last Infusion: 05/25/18 10:30 Dose: 0 mls/hr Insulin Human Lispro (Humalog Insulin 100 Unit/1 Ml 3 Ml Vial) 0 - 12 unit SUBCUT ACHSP PRN PRN Reason: Protocol Stop: 06/15/18 22:31 Last Admin: 05/18/18 21:55 Dose: 2 units Lansoprazole (Prevacid 30 Mg Odt Tablet) 30 mg PO BID@0600,1700 [facility] Stop: 06/18/18 16:59 Last Admin: 05/25/18 05:43 Dose: 30 mg Levothyroxine Sodium (Synthroid 0.1 Mg Tablet) 0.1 mg PO Q6AM [facility] Stop: 06/17/18 05:59 Last Admin: 05/25/18 05:42 Dose: 0.1 mg Levothyroxine Sodium (Synthroid 0.075 Mg Tablet) 0.075 mg PO Q6AM [facility] Stop: 06/17/18 05:59 Last Admin: 05/25/18 05:43 Dose: 0.075 mg Magnesium Oxide (Mag-Ox 400 Mg Tablet) 400 mg PO TID [facility] Stop: 06/17/18 13:59 Last Admin: 05/25/18 12:43 Dose: Not Given Metolazone (Zaroxolyn 5 Mg Tablet) 5 mg PO BID [facility] Stop: 06/17/18 17:59 Last Admin: 05/25/18 12:44 Dose: Not Given Midodrine (Proamatine 5 Mg Tablet) 10 mg PO TID [facility] Stop: 06/21/18 13:59 Last Admin: 05/25/18 12:43 Dose: Not Given Nitroglycerin (Nitrostat 0.4 Mg (1/150 Gr) Tabs 25/Bottle) 1 tab SL Q5MP PRN PRN Reason: CHEST PAIN Last Admin: 05/20/18 03:14 Dose: 0.4 mg Nystatin (Mycostatin Topical Powder 15 Gm) 1 applic TP BID [facility] Stop: 05/28/18 15:29 Last Admin: 05/25/18 12:43 Dose: Not Given Ondansetron HCl (Zofran Inj/Pf 4 Mg/2 Ml Sdv) 4 mg IV Q8HP PRN PRN Reason: FOR NAUSEA/VOMITING Stop: 06/15/18 16:39 Last Admin: 05/21/18 09:56 Dose: 4 mg Prednisone (Deltasone 10 Mg Tablet) 10 mg PO DAILY [facility] Stop: 06/16/18 13:59 Last Admin: 05/25/18 12:42 Dose: Not Given Promethazine HCl (Phenergan Inj 25 Mg/1 Ml Vial) 25 mg IV Q4HP PRN PRN Reason: UNRESOLVED NAUSEA/VOMITING Stop: 06/20/18 11:02 Last Admin: 05/21/18 15:35 Dose: 25 mg - Allergies Allergies/Adverse Reactions: shellfish derived Allergy (Verified 05/16/18 12:25) - Diet/Activity Discharge Diet: Cardiac, Diabetic Hospital Course Hospital Course: This is 67 years old black female patient with multiple comorbidities admitted with a diagnosis of acute on chronic systolic congestive heart failure exacerbation. Patient was tried with p.o. diuretics at her primary flight engineer inspector office since she failed to respond to that admitted for IV diuretics. Currently patient is not able to produce urine and her flight engineer inspector Dr. Rico decided to temporarily dialyze her and she is status post insertion of hemodialysis catheter. During her stay her blood culture grew gram-positive cocci in cluster which she has been started on vancomycin initially but the final report of the blood culture reported as staph epidermidis which is a contaminant so the vancomycin discontinued. Her positive blood culture grew Bacteroides fragilis for which she has been on Flagyl. This morning patient has her first hemodialysis. She is also evaluated by Dr. Rico this morning and he recommended CRRT for this patient needs to be transferred to tertiary care center. I called [facility] and I contacted Dr. Odonnell flight engineer inspector who accepted the patient. Physical Exam Vital Signs: Temp Pulse Resp BP Pulse Ox 97.4 F 83 24 H 99/62 L 93 05/25/18 12:00 05/25/18 12:00 05/25/18 12:00 05/25/18 12:00 05/25/18 12:00 Intake & Output 05/24/18 05/25/18 05/26/18 06:59 06:59 06:59 Intake Total 650 1450 332 Output Total 50 17 20 Balance 600 1433 312 Weight 97.7 kg 103.5 kg General appearance: PRESENT: mild distress Mouth exam: PRESENT: dry mucosa Neck exam: ABSENT: carotid bruit, JVD, lymphadenopathy, thyromegaly Respiratory exam: PRESENT: decreased breath sounds Cardiovascular exam: PRESENT: tachycardia Extremities exam: PRESENT: +2 edema Neurological exam: PRESENT: altered - Skin breaks on her flanks and she has also stage I pressure ulcer Results Laboratory Results: 05/25/18 05:25 05/25/18 05:25 05/25/18 05/25/18 05:25 05:25 WBC 12.9 H RBC 3.31 L Hgb 9.6 L Hct 30.4 L MCV 92 MCH 29.1 MCHC 31.8 L RDW 20.4 H Plt Count 71 L Seg Neutrophils % Not Reportable Lymphocytes % Not Reportable Monocytes % Not Reportable Eosinophils % Not Reportable Basophils % Not Reportable Absolute Neutrophils Not Reportable Absolute Lymphocytes Not Reportable Absolute Monocytes Not Reportable Absolute Eosinophils Not Reportable Absolute Basophils Not Reportable Sodium 142.1 Potassium 4.4 Chloride 102 Carbon Dioxide 13 L Anion Gap 27 H BUN 47 H Creatinine 4.35 H Est GFR ( Amer) 12 L Est GFR (Non-Af Amer) 10 L Glucose 235 H Calcium 8.7 05/19/18 05/19/18 05/19/18 11:05 17:10 22:51 Creatine Kinase CK-MB (CK-2) Troponin I 0.016 0.015 0.016 05/20/18 05/20/18 05/20/18 03:17 11:30 11:30 Creatine Kinase 21 L CK-MB (CK-2) 0.36 Troponin I 0.023 0.021 05/20/18 05/20/18 17:45 17:45 Creatine Kinase 28 L CK-MB (CK-2) 0.41 Troponin I 0.021 Impressions: KUB X-Ray 05/21/18 00:00 IMPRESSION: NO RADIOGRAPHIC EVIDENCE FOR ACUTE ABDOMINAL DISEASE. Chest X-Ray 05/22/18 00:00 IMPRESSION: 1. NO PNEUMOTHORAX FOLLOWING CENTRAL LINE PLACEMENT. THE CATHETER APPEARS TO PASS FROM THE LEFT BRACHIOCEPHALIC VEIN INTO THE RIGHT SUBCLAVIAN VEIN. 2. CARDIOMEGALY AND VASCULAR CONGESTION
--- NOTE | 2018-05-25 14:44 | PDOC PROGRESS REPORT ---
Subjective Progress Note for:: 05/25/18 Reason For Visit: Patient seen today in the ICU. She has been initiated on hemodialysis given the fact that she has reached oliguric HALEY, with worsening congestive heart failure, in the setting of septic shock. She had a temporary dialysis catheter placed in the groin yesterday by Dr. Rico. Currently she is undergoing dialysis on low blood flow/dialysate flow under cover of IV Levophed. Currently she is on IV Flagyl for Bacteroides which was grown in the blood cultures. Earlier she had also grown staph epidermidis which was ruled as a contaminant by the hospitalist and has been taken off the IV vancomycin. Patient is quite lethargic and difficult to arouse. When she is aroused she is quite confused and disoriented.She is unable to keep awake for any length of conversation. Labs and medications were reviewed with the treating nurse in the ICU.She is currently on Levophed but blood pressures are difficult to maintain and therefore fluid extraction is also going to be difficult especially in the long run.Blood sugars were running low to being hypoglycemic. Initially started on D10 drip which was insufficient and needed more fluid IV and therefore she was initiated on D50 along with the D10 which seems to have maintained her blood sugars satisfactory. Discussed with the treating nurse to regulate her D50 and D10 to maintain blood sugars between 100 and 130.She also has a history of recently diagnosed polymyalgia Rheumatica apparently even though I have not been able to confirm as have not been able to obtain notes from her it programmer. She was on prednisone 10 mg prior to her admission after seeing the it programmer recently. Physical Exam Vital Signs: Temp Pulse Resp BP Pulse Ox 97.4 F 83 24 H 99/62 L 93 05/25/18 12:00 05/25/18 12:00 05/25/18 12:00 05/25/18 12:00 05/25/18 12:00 Intake & Output 05/24/18 05/25/18 05/26/18 06:59 06:59 06:59 Intake Total 650 1450 332 Output Total 50 17 2520 Balance 600 1433 -2188 Weight 97.7 kg 103.5 kg General appearance: PRESENT: disheveled Exam: She looks very moribund and critical. She is quite lethargic with poor response to oral commands. When she does she is quite disoriented and confused. Neck exam: ABSENT: lymphadenopathy, meningismus, tenderness Respiratory exam: PRESENT: clear to auscultation juancarlos, crackles. ABSENT: rhonchi Cardiovascular exam: PRESENT: RRR, +S1, +S2 GI/Abdominal exam: PRESENT: normal bowel sounds, soft. ABSENT: organomegaly, tenderness Extremities exam: PRESENT: +2 edema - With generalized anasarca. Neurological exam: PRESENT: altered Skin exam: PRESENT: skin tears - Was seen in different areas of the lower extremities on the sides and had taken pictures earlier for early stage I decubitus ulcers over the sacrum Results Laboratory Results: 05/25/18 05:25 05/25/18 05:25 05/25/18 05/25/18 05:25 05:25 WBC 12.9 H RBC 3.31 L Hgb 9.6 L Hct 30.4 L MCV 92 MCH 29.1 MCHC 31.8 L RDW 20.4 H Plt Count 71 L Seg Neutrophils % Not Reportable Lymphocytes % Not Reportable Monocytes % Not Reportable Eosinophils % Not Reportable Basophils % Not Reportable Absolute Neutrophils Not Reportable Absolute Lymphocytes Not Reportable Absolute Monocytes Not Reportable Absolute Eosinophils Not Reportable Absolute Basophils Not Reportable Sodium 142.1 Potassium 4.4 Chloride 102 Carbon Dioxide 13 L Anion Gap 27 H BUN 47 H Creatinine 4.35 H Est GFR ( Amer) 12 L Est GFR (Non-Af Amer) 10 L Glucose 235 H Calcium 8.7 05/19/18 05/19/18 05/19/18 11:05 17:10 22:51 Creatine Kinase CK-MB (CK-2) Troponin I 0.016 0.015 0.016 05/20/18 05/20/18 05/20/18 03:17 11:30 11:30 Creatine Kinase 21 L CK-MB (CK-2) 0.36 Troponin I 0.023 0.021 05/20/18 05/20/18 17:45 17:45 Creatine Kinase 28 L CK-MB (CK-2) 0.41 Troponin I 0.021 Impressions: KUB X-Ray 05/21/18 00:00 IMPRESSION: NO RADIOGRAPHIC EVIDENCE FOR ACUTE ABDOMINAL DISEASE. Chest X-Ray 05/22/18 00:00 IMPRESSION: 1. NO PNEUMOTHORAX FOLLOWING CENTRAL LINE PLACEMENT. THE CATHETER APPEARS TO PASS FROM THE LEFT BRACHIOCEPHALIC VEIN INTO THE RIGHT SUBCLAVIAN VEIN. 2. CARDIOMEGALY AND VASCULAR CONGESTION Assessment & Plan - Diagnosis (1) Acute on chronic systolic (congestive) heart failure Is this a current diagnosis for this admission?: Yes Plan: She is getting into worsening congestive heart failure in the setting of oliguric renal failure. She has pre-existing heart disease. Recent echocardiogram done showed an LV ejection fraction of 25%. Her current septic shock has made things a whole lot worse. She has failed to respond to intravenous diuretics.She is now been initiated on hemodialysis. However given the fact that she is in septic shock she needs to be on CRRT for continuous gentle fluid extraction.Since we do not have is CRRT available he has she needs to be transferred to a tertiary care hospital. Discussed with the hospitalist Dr. Washington. (2) Septic shock Is this a current diagnosis for this admission?: Yes Plan: On pressors. She has reached oliguric HALEY and is being initiated on hemodialysis. I would encourage broadening spectrum of antibiotics besides IV Flagyl, after getting repeat blood cultures.She would benefit from an ID specialist in a tertiary care center. (3) Acute on chronic renal failure Qualifiers: Acute renal failure type: unspecified Chronic kidney disease stage: stage 3 (moderate) Qualified Code(s): N17.9 - Acute kidney failure, unspecified; N18.3 - Chronic kidney disease, stage 3 (moderate); N18.3 - Chronic kidney disease, stage 3 (moderate); N18.3 - Chronic kidney disease, stage 3 (moderate) Is this a current diagnosis for this admission?: Yes Plan: Unfortunately continued to get worse and has become oliguric. She is in morena congestive heart failure in the setting of septic shock. She has been initiated on hemodialysis through temporary femoral catheter. However given her septic shock status and dependency on vasopressors she needs to be on CRRT for optimal fluid extraction. Discussed with hospitalist that she needs to be transferred to a tertiary care center with CRRT facilities.Had a long talk with her sister about the critical nature. Discussed the reasons for initiation of hemodialysis which I had to talk with her yesterday as well. She is agreeable with the current outlined plans including transfer to tertiary care. (4) CKD (chronic kidney disease) stage 3, GFR 30-59 ml/min Is this a current diagnosis for this admission?: Yes Plan: Renal numbers are getting worse with dropping urine output. Poor response to the initiation of pressor agents. (5) Type 2 diabetes mellitus Is this a current diagnosis for this admission?: Yes Plan: Currently she is having hypoglycemia in spite of not being on any antidiabetic agents. She is not eating or drinking. Part of septic shock and possibly poor liver functions from possible congestive hepatopathy. Initiated D10 followed by D5 and titrated to keep blood sugars between 100- 130. (6) Hypotension Is this a current diagnosis for this admission?: Yes Plan: Secondary to septic shock on Levophed. Blood pressures are being maintained better. (7) Polymyalgia rheumatica Plan: She is on prednisone which will need to be converted to intravenous doses given her inability to take anything p.o. (8) Hypothyroidism Qualifiers: Hypothyroidism type: acquired Qualified Code(s): E03.9 - Hypothyroidism, unspecified Is this a current diagnosis for this admission?: Yes Plan: On replacements.
[2018-05-25 16:17] VITALS: BP 88/63
[2018-05-25] MEDS ORDERED: METRONIDAZOLE 500 MG/NS RTU 500 MG/100 ML RTUPB IV SCH (22:00)
[2018-05-26 08:42] LABS: HEPATITS B SURFACE ANTIGEN Negative (Negative)
[2018-05-26 09:37] LABS: HEPATITIS B CORE AB TOT Negative (Negative); HEPATITIS B SURFACE AB QUANT <3.1 mIU/mL (Immunity>9)
[2018-05-27 10:38] LABS: HEPATITIS C QUANTITATION HCV Not Detected IU/mL (.)
== END 2018-05-25 14:25 | disposition short-term general hospital (02) | DRG 291 ==
LOC: ER 11:53 → EH 17:25 → 5 18:51 → ICU 05-23 21:07
PROVIDERS: ADMIT Internal Medicine; ATTEND Internal Medicine
PROC: 06HM33Z Insertion of Infusion Device into Right Femoral Vein, Percutaneous Approach (ICD-10-PCS; principal; 2018-05-22)
PROC: 02HV33Z Insertion of Infusion Device into Superior Vena Cava, Percutaneous Approach (ICD-10-PCS; 2018-05-22)
PROC: 5A1D70Z Performance of Urinary Filtration, Intermittent, Less than 6 Hours Per Day (ICD-10-PCS; 2018-05-25)
DX: I50.23 Acute on chronic systolic (congestive) heart failure (principal); A41.9 Sepsis, unspecified organism; R65.21 Severe sepsis with septic shock; Z68.41 Body mass index [BMI] 40.0-44.9, adult; I13.0 Hypertensive heart and chronic kidney disease with heart failure and stage 1 through stage 4 chronic kidney disease, or unspecified chronic kidney disease; N18.4 Chronic kidney disease, stage 4 (severe); I82.C21 Chronic embolism and thrombosis of right internal jugular vein; N17.9 Acute kidney failure, unspecified; E11.22 Type 2 diabetes mellitus with diabetic chronic kidney disease; E87.6 Hypokalemia; E03.9 Hypothyroidism, unspecified; E88.09 Other disorders of plasma-protein metabolism, not elsewhere classified; I25.10 Atherosclerotic heart disease of native coronary artery without angina pectoris; M35.3 Polymyalgia rheumatica; E66.01 Morbid (severe) obesity due to excess calories; Z79.899 Other long term (current) drug therapy; Z85.6 Personal history of leukemia; M19.90 Unspecified osteoarthritis, unspecified site; Z90.710 Acquired absence of both cervix and uterus; Z95.0 Presence of cardiac pacemaker; Z91.013 Allergy to seafood
CPT/HCPCS: 36415; 36556; 51702; 71045; 74018; 76937; 80048; 80053; 81001; 82533; 82550; 82553; 82607; 82728; 82746; 82962; 83036; 83540; 83550; 83605; 83690; 83735; 83880; 84100; 84484; 85025; 85027; 85045; 86317; 86704; 87040; 87077; 87186; 87340; 87493; 87522; 93005; 93010; 93306; 99285; C1751; C1752; G8978-GP; G8979-GP; G8987-GO; G8988-GO; J0696; J1642; J1644; J1815; J1940; J2001; J2405; J2550; J2765; J3370; J3490; J7060; J7512; P9047